=== PATIENT | male | born 1955 | race Caucasian/White ===

== ENCOUNTER 2016-08-22 16:09 | Emergency (ER) | payer BC, SELFPAY ==
--- NOTE | 2016-08-22 18:01 | EDDOCDS ---
Nurse's Notes [facility] Name: Rc Pacheco Age: 60 yrs Sex: Male : 1955 Arrival Date: 08/22/2016 Time: 16:09 Bed PD Private MD: NO PRIMARY PHYSICIAN, . Diagnosis: Retention of urine Presentation: 08/22 16:20 Presenting complaint: Patient states: Urinary retention. Has not urinated since noon. ld5 Has urgency but unable to go. Adult Sepsis Screening: The patient does not have new or worsening altered mentation. Patient's respiratory rate is less than 22. Systolic blood pressure is greater than 100. Patient has a qSOFA score of 0- Negative Sepsis Screen. Suicide/Homicide risk assessment- the patient denies having any suicidal and/or homicidal ideations and does not present with any other emotional, behavioral or mental health complaints. Status: Patient is not a online services manager or dependent. Transition of care: patient was not received from another setting of care. 16:20 Acuity: PELON Level 3 ld5 16:20 Method Of Arrival: Walkin/Carried/Asstd ld5 Triage Assessment: 16:22 General: Appears uncomfortable. Pain: Location: suprapubic area Pain currently is 10 ld5 out of 10 on a pain scale. HIV screening NA for this visit Offered previously. Neurological: Level of Consciousness is awake, alert. : Reports inability to void urgency. Historical: - Allergies: no known allergies; - Home Meds: 1. none - PMHx: Chronic Back pain; Urinary retention; - PSHx: Hernia repair; - Social history: Smoking status: Patient states was never smoker of tobacco. No barriers to communication noted, The patient speaks fluent Romanian, Speaks appropriately for age. - Family history: Not pertinent. - : The pt / caregiver states he / she is not on anticoagulants. Home medication list is obtained from the patient. - Exposure Risk Screening:: None identified. Screenin:50 Screening information is obtained from the patient. Fall risk: No risks identified. ttb Assistance ADL's: requires no assistance with activities of daily living. Abuse/DV Screen: The patient / caregiver reports he/she is: not in a situation that causes fear, pain or injury. Nutritional screening: No deficits noted. Advance Directives: Currently, there is no health care proxy. home support is adequate. Assessment: 16:50 General: Appears uncomfortable, well nourished, well groomed. ttb 16:50 Pain: Location: lower abd. Neurological: Level of Consciousness is awake, alert. ttb Respiratory: No deficits noted. Airway is patent. Derm: Skin is normal. 17:57 Reassessment: Patient appears in no apparent distress at this time. Patient denies pain ttb at this time. Patient states feeling better. Patient states symptoms have improved. leg bag placed. Urine output remains adequate. 1300ml total. Respiratory: No deficits noted. Airway is patent. : Song in place to gravity drainage Urine is cloudy. Vital Signs: 16:11 BP 155 / 87; Pulse 103; Resp 18 S; Temp 98.2(O); Pulse Ox 97% on R/A; Weight 77.11 kg gr2 (R); Height 5 ft. 8 in. (172.72 cm) (R); Pain 7/10; 17:57 BP 129 / 76; Pulse 86; Resp 18; Temp 98.6; Pulse Ox 98% on R/A; Pain 0/10; ttb 16:11 Body Mass Index 25.85 (77.11 kg, 172.72 cm) gr2 Vitals: 16:11 Log In Time: August 22, 2016 at 16:11. gr2 ED Course: 16:10 Patient visited by David Hurd. gr2 16:10 NO PRIMARY PHYSICIAN, . is Private Physician. gr2 16:10 Patient moved to Waiting gr2 16:12 Patient visited by David Hurd. gr2 16:12 Patient moved to Pre RCE gr2 16:22 Triage Initiated ld5 16:23 Patient visited by Flora Carney RN. ld5 16:26 Patient moved to Triage 2 ld5 16:33 Bladder Scan completed Results: >999ml : unable to print . ttb 16:37 Giuliano New PA is PHCP. btw 16:37 Ashlie Ascencio MD is Attending Physician. btw 16:37 Patient visited by Giuliano New PA. btw 16:50 The patient / caregiver is instructed regarding the plan of care and ED course. ttb Accompanied by Family Member, Patient has correct armband on for positive identification. 17:10 Patient visited by Nao Oakley RN. ttb 17:10 Song cath inserted 18 Fr. Balloon inflated. To gravity drainage. Urine specimen ttb collected. other clamped after 800ml returned clear yellow urine. Patient tolerated well. 17:12 Patient visited by Noa Oakley RN. ttb 17:13 Patient moved to PD ttb 17:39 Nel Zepeda MD is Referral Physician. btw 17:57 No IV's were initiated during this patient's visit. No procedures done that require ttb assistance. Order Results: Lab Order: Urinalysis; SPEC'M 08/22/16 16:57 Test: APPEARANCE, URINE; Value: CLEAR; Range: CLEAR; Status: F Test: COLOR, URINE; Value: YELLOW; Range: YELLOW; Status: F Test: PH,URINE; Value: 6.0; Range: 5.0-9.0; Units: UNITS; Status: F Test: SPECIFIC GRAVITY URINE AUTO; Value: 1.010; Range: 1.002-1.035; Status: F Test: PROTEIN, URINE AUTO; Value: NEGATIVE; Range: NEGATIVE; Units: mg/dL; Status: F Test: GLUCOSE, URINE (UA) AUTO; Value: NEGATIVE; Range: NEGATIVE; Units: mg/dL; Status: F Test: KETONE, URINE AUTO; Value: NEGATIVE; Range: NEGATIVE; Units: mg/dL; Status: F Test: UROBILINOGEN, URINE AUTO; Value: 0.2; Range: 0.0-2.0; Units: mg/dL; Status: F Test: BILIRUBIN, URINE AUTO; Value: NEGATIVE; Range: NEGATIVE; Status: F Test: NITRITE, URINE AUTO; Value: NEGATIVE; Range: NEGATIVE; Status: F Test: LEUKOCYTE ESTERASE, URINE AUTO; Value: NEGATIVE; Range: NEGATIVE; Status: F Test: BLOOD, URINE BLOOD; Value: NEGATIVE; Range: NEGATIVE; Status: F Test: WBC, URINE AUTO; Value: 1; Range: 0-3; Units: /HPF; Status: F Test: RBC, URINE AUTO; Value: 3; Range: 0-3; Units: /HPF; Status: F Test: BACTERIA, URINE AUTO; Value: 1+; Range: NEGATIVE; Abnormal: Above high normal; Status: F Test: SQUAMOUS EPITHELIAL CELL UR AU; Value: 0; Range: 0-6; Units: /HPF; Status: F Test: MUCUS, URINE; Value: SMALL; Range: NEGATIVE; Status: F Test: HYALINE CAST, URINE AUTO; Value: 0; Range: 0-1; Units: /LPF; Status: F Outcome: 17:39 Discharge ordered by Provider. btw 17:57 Discharge Assessment: Patient awake, alert and oriented x 3. No cognitive and/or ttb functional deficits noted. Patient verbalized understanding of disposition instructions. Patient awake and alert. patient administered narcotics - no. The following High Risk Discharge criteria are identified: None. Discharged to home ambulatory, with family. Condition: good Condition: stable Condition: improved. Discharge instructions given to patient, Instructed on discharge instructions, follow up and referral plans. medication usage, leg bag teaching Demonstrated understanding of instructions, medications, Pt was receptive of discharge instructions/ teaching. No special radiology studies were completed. Property :Personal belongings accompany Pt. 18:00 Patient left the ED. ttb Signatures: Giuliano New PA PA btw Flora CarneyRN RN ld5 Noa Oakley RN RN ttb David Hurd gr2 [place]
--- NOTE | 2016-08-22 18:01 | EDDOCDS ---
Physician Documentation [facility] Name: Rc Pacheco Age: 60 yrs Sex: Male : 1955 Arrival Date: 08/22/2016 Time: 16:09 Bed PD Private MD: NO PRIMARY PHYSICIAN, . Disposition: 08/22/16 17:39 Discharged to Home/Self Care. Impression: Retention of urine. - Condition is Stable. - Discharge Instructions: Urinary Retention, Acute, Male, Xbuz-fk-Aqhf, Song Catheter Care, Adult, Mubr-[id number]. - Medication Reconciliation, Local Pharmacy Hours form. - Follow up: Nel Zepeda MD; When: 2 - 3 days; Reason: Further diagnostic work-up, Recheck today's complaints, Continuance of care. - Problem is new. - Symptoms are unchanged. Historical: - Allergies: no known allergies; - Home Meds: 1. none - PMHx: Chronic Back pain; Urinary retention; - PSHx: Hernia repair; - Social history: Smoking status: Patient states was never smoker of tobacco. No barriers to communication noted, The patient speaks fluent Cook Islander, Speaks appropriately for age. - Family history: Not pertinent. - : The pt / caregiver states he / she is not on anticoagulants. Home medication list is obtained from the patient. - Exposure Risk Screening:: None identified. Vital Signs: 08/22 16:11 BP 155 / 87; Pulse 103; Resp 18 S; Temp 98.2(O); Pulse Ox 97% on R/A; Weight 77.11 kg / gr2 170 lbs (R); Height 5 ft. 8 in. (172.72 cm) (R); Pain 7/10; 17:57 BP 129 / 76; Pulse 86; Resp 18; Temp 98.6; Pulse Ox 98% on R/A; Pain 0/10; ttb 16:11 Body Mass Index 25.85 (77.11 kg, 172.72 cm) gr2 MDM: 16:42 Song ordered. btw 16:43 Urinalysis Ordered. EDMS 16:43 Urine Culture Ordered. EDMS 17:30 Urinalysis Reviewed. btw 17:38 Leg Bag ordered. btw Signatures: Dispatcher [employer] EDMS Giuliano New PA PA btw Flora Carney,RN RN ld5 Noa Oakley, RN RN ttb MTDD
--- NOTE | 2016-08-24 19:01 | EDDOCDS ---
Physician Documentation [facility] Name: Rc Pacheco Age: 60 yrs Sex: Male : 1955 Arrival Date: 08/22/2016 Time: 16:09 Bed PD Private MD: NO PRIMARY PHYSICIAN, . Disposition: 08/22/16 17:39 Discharged to Home/Self Care. Impression: Retention of urine. - Condition is Stable. - Discharge Instructions: Urinary Retention, Acute, Male, Scec-di-Hour, Song Catheter Care, Adult, Frwt-uu-Pufu. - Medication Reconciliation, Local Pharmacy Hours form. - Follow up: Nel Zepeda MD; When: 2 - 3 days; Reason: Further diagnostic work-up, Recheck today's complaints, Continuance of care. - Problem is new. - Symptoms are unchanged. Historical: - Allergies: no known allergies; - Home Meds: 1. none - PMHx: Chronic Back pain; Urinary retention; - PSHx: Hernia repair; - Social history: Smoking status: Patient states was never smoker of tobacco. No barriers to communication noted, The patient speaks fluent Sri Lankan, Speaks appropriately for age. - Family history: Not pertinent. - : The pt / caregiver states he / she is not on anticoagulants. Home medication list is obtained from the patient. - Exposure Risk Screening:: None identified. Vital Signs: 08/22 16:11 BP 155 / 87; Pulse 103; Resp 18 S; Temp 98.2(O); Pulse Ox 97% on R/A; Weight 77.11 kg / gr2 170 lbs (R); Height 5 ft. 8 in. (172.72 cm) (R); Pain 7/10; 17:57 BP 129 / 76; Pulse 86; Resp 18; Temp 98.6; Pulse Ox 98% on R/A; Pain 0/10; ttb 16:11 Body Mass Index 25.85 (77.11 kg, 172.72 cm) gr2 MDM: 16:42 Song ordered. btw 16:43 Urinalysis Ordered. EDMS 16:43 Urine Culture Ordered. EDMS 17:30 Urinalysis Reviewed. btw 17:38 Leg Bag ordered. btw 18:03 [facility] Payment Agreement was scanned into [employer] and attached to record. gjb 18:03 Financial registration complete. gjb 08/23 09:18 T-Sheet-- Draft Copy was scanned into [employer] and attached to record. gb Signatures: Dispatcher [employer] EDMS Renuka Palacio, Reg Reg gb Giuliano New, JOAN FRANCO btw Flora CarneyRN RN ld5 Noa Oakley RN RN Bree Nguyen The chart was reviewed and I authenticate all verbal orders and agree with the evaluation and treatment provided.Attachments: 08/22 18:03 [facility] Payment Agreement gjb 08/23 09:18 T-Sheet-- Draft Copy gb Chart Complete MTDD
--- NOTE | 2016-08-24 19:01 | EDDOCDS ---
Physician Documentation [facility] Name: Rc Pacheco Age: 60 yrs Sex: Male : 1955 Arrival Date: 08/22/2016 Time: 16:09 Bed PD Private MD: NO PRIMARY PHYSICIAN, . Disposition: 08/22/16 17:39 Discharged to Home/Self Care. Impression: Retention of urine. - Condition is Stable. - Discharge Instructions: Urinary Retention, Acute, Male, Sdho-zs-Ltzy, Song Catheter Care, Adult, Uyxo-ym-Apgy. - Medication Reconciliation, Local Pharmacy Hours form. - Follow up: Nel Zepeda MD; When: 2 - 3 days; Reason: Further diagnostic work-up, Recheck today's complaints, Continuance of care. - Problem is new. - Symptoms are unchanged. Historical: - Allergies: no known allergies; - Home Meds: 1. none - PMHx: Chronic Back pain; Urinary retention; - PSHx: Hernia repair; - Social history: Smoking status: Patient states was never smoker of tobacco. No barriers to communication noted, The patient speaks fluent Stateless, Speaks appropriately for age. - Family history: Not pertinent. - : The pt / caregiver states he / she is not on anticoagulants. Home medication list is obtained from the patient. - Exposure Risk Screening:: None identified. Vital Signs: 08/22 16:11 BP 155 / 87; Pulse 103; Resp 18 S; Temp 98.2(O); Pulse Ox 97% on R/A; Weight 77.11 kg / gr2 170 lbs (R); Height 5 ft. 8 in. (172.72 cm) (R); Pain 7/10; 17:57 BP 129 / 76; Pulse 86; Resp 18; Temp 98.6; Pulse Ox 98% on R/A; Pain 0/10; ttb 16:11 Body Mass Index 25.85 (77.11 kg, 172.72 cm) gr2 MDM: 16:42 Song ordered. btw 16:43 Urinalysis Ordered. EDMS 16:43 Urine Culture Ordered. EDMS 17:30 Urinalysis Reviewed. btw 17:38 Leg Bag ordered. btw 18:03 [facility] Payment Agreement was scanned into [employer] and attached to record. gjb 18:03 Financial registration complete. gjb 08/23 09:18 T-Sheet-- Draft Copy was scanned into [employer] and attached to record. gb Signatures: Dispatcher [employer] EDMS Renuka Palacio, Reg Reg gb Giuliano New, JOAN FRANCO btw Flora CarneyRN RN ld5 Noa Oakley RN RN Bree Nguyen The chart was reviewed and I authenticate all verbal orders and agree with the evaluation and treatment provided.Attachments: 08/22 18:03 [facility] Payment Agreement gjb 08/23 09:18 T-Sheet-- Draft Copy gb Chart Complete MTDD
--- NOTE | 2016-08-24 19:01 | EDDOCDS ---
Nurse's Notes [facility] Name: Rc Pacheco Age: 60 yrs Sex: Male : 1955 Arrival Date: 08/22/2016 Time: 16:09 Bed PD Private MD: NO PRIMARY PHYSICIAN, . Diagnosis: Retention of urine Presentation: 08/22 16:20 Presenting complaint: Patient states: Urinary retention. Has not urinated since noon. ld5 Has urgency but unable to go. Adult Sepsis Screening: The patient does not have new or worsening altered mentation. Patient's respiratory rate is less than 22. Systolic blood pressure is greater than 100. Patient has a qSOFA score of 0- Negative Sepsis Screen. Suicide/Homicide risk assessment- the patient denies having any suicidal and/or homicidal ideations and does not present with any other emotional, behavioral or mental health complaints. Status: Patient is not a guest service team leader or dependent. Transition of care: patient was not received from another setting of care. 16:20 Acuity: PELON Level 3 ld5 16:20 Method Of Arrival: Walkin/Carried/Asstd ld5 Triage Assessment: 16:22 General: Appears uncomfortable. Pain: Location: suprapubic area Pain currently is 10 ld5 out of 10 on a pain scale. HIV screening NA for this visit Offered previously. Neurological: Level of Consciousness is awake, alert. : Reports inability to void urgency. Historical: - Allergies: no known allergies; - Home Meds: 1. none - PMHx: Chronic Back pain; Urinary retention; - PSHx: Hernia repair; - Social history: Smoking status: Patient states was never smoker of tobacco. No barriers to communication noted, The patient speaks fluent Setswana, Speaks appropriately for age. - Family history: Not pertinent. - : The pt / caregiver states he / she is not on anticoagulants. Home medication list is obtained from the patient. - Exposure Risk Screening:: None identified. Screenin:50 Screening information is obtained from the patient. Fall risk: No risks identified. ttb Assistance ADL's: requires no assistance with activities of daily living. Abuse/DV Screen: The patient / caregiver reports he/she is: not in a situation that causes fear, pain or injury. Nutritional screening: No deficits noted. Advance Directives: Currently, there is no health care proxy. home support is adequate. Assessment: 16:50 General: Appears uncomfortable, well nourished, well groomed. ttb 16:50 Pain: Location: lower abd. Neurological: Level of Consciousness is awake, alert. ttb Respiratory: No deficits noted. Airway is patent. Derm: Skin is normal. 17:57 Reassessment: Patient appears in no apparent distress at this time. Patient denies pain ttb at this time. Patient states feeling better. Patient states symptoms have improved. leg bag placed. Urine output remains adequate. 1300ml total. Respiratory: No deficits noted. Airway is patent. : Song in place to gravity drainage Urine is cloudy. Vital Signs: 16:11 BP 155 / 87; Pulse 103; Resp 18 S; Temp 98.2(O); Pulse Ox 97% on R/A; Weight 77.11 kg gr2 (R); Height 5 ft. 8 in. (172.72 cm) (R); Pain 7/10; 17:57 BP 129 / 76; Pulse 86; Resp 18; Temp 98.6; Pulse Ox 98% on R/A; Pain 0/10; ttb 16:11 Body Mass Index 25.85 (77.11 kg, 172.72 cm) gr2 Vitals: 16:11 Log In Time: August 22, 2016 at 16:11. gr2 ED Course: 16:10 Patient visited by David Hurd. gr2 16:10 NO PRIMARY PHYSICIAN, . is Private Physician. gr2 16:10 Patient moved to Waiting gr2 16:12 Patient visited by David Hurd. gr2 16:12 Patient moved to Pre RCE gr2 16:22 Triage Initiated ld5 16:23 Patient visited by Flora Carney RN. ld5 16:26 Patient moved to Triage 2 ld5 16:33 Bladder Scan completed Results: >999ml : unable to print . ttb 16:37 Giuliano New PA is PHCP. btw 16:37 Ashlie Ascencio MD is Attending Physician. btw 16:37 Patient visited by Giuliano New PA. btw 16:50 The patient / caregiver is instructed regarding the plan of care and ED course. ttb Accompanied by Family Member, Patient has correct armband on for positive identification. 17:10 Patient visited by Noa Oakley RN. ttb 17:10 Song cath inserted 18 Fr. Balloon inflated. To gravity drainage. Urine specimen ttb collected. other clamped after 800ml returned clear yellow urine. Patient tolerated well. 17:12 Patient visited by Noa Oakley RN. ttb 17:13 Patient moved to PD ttb 17:39 Nel Zepeda MD is Referral Physician. btw 17:57 No IV's were initiated during this patient's visit. No procedures done that require ttb assistance. 18:03 [facility] Payment Agreement was scanned into [employer] and attached to record. gjb 08/23 09:18 T-Sheet-- Draft Copy was scanned into [employer] and attached to record. gb Order Results: Lab Order: Urinalysis; SPEC'M 08/22/16 16:57 Test: APPEARANCE, URINE; Value: CLEAR; Range: CLEAR; Status: F Test: COLOR, URINE; Value: YELLOW; Range: YELLOW; Status: F Test: PH,URINE; Value: 6.0; Range: 5.0-9.0; Units: UNITS; Status: F Test: SPECIFIC GRAVITY URINE AUTO; Value: 1.010; Range: 1.002-1.035; Status: F Test: PROTEIN, URINE AUTO; Value: NEGATIVE; Range: NEGATIVE; Units: mg/dL; Status: F Test: GLUCOSE, URINE (UA) AUTO; Value: NEGATIVE; Range: NEGATIVE; Units: mg/dL; Status: F Test: KETONE, URINE AUTO; Value: NEGATIVE; Range: NEGATIVE; Units: mg/dL; Status: F Test: UROBILINOGEN, URINE AUTO; Value: 0.2; Range: 0.0-2.0; Units: mg/dL; Status: F Test: BILIRUBIN, URINE AUTO; Value: NEGATIVE; Range: NEGATIVE; Status: F Test: NITRITE, URINE AUTO; Value: NEGATIVE; Range: NEGATIVE; Status: F Test: LEUKOCYTE ESTERASE, URINE AUTO; Value: NEGATIVE; Range: NEGATIVE; Status: F Test: BLOOD, URINE BLOOD; Value: NEGATIVE; Range: NEGATIVE; Status: F Test: WBC, URINE AUTO; Value: 1; Range: 0-3; Units: /HPF; Status: F Test: RBC, URINE AUTO; Value: 3; Range: 0-3; Units: /HPF; Status: F Test: BACTERIA, URINE AUTO; Value: 1+; Range: NEGATIVE; Abnormal: Above high normal; Status: F Test: SQUAMOUS EPITHELIAL CELL UR AU; Value: 0; Range: 0-6; Units: /HPF; Status: F Test: MUCUS, URINE; Value: SMALL; Range: NEGATIVE; Status: F Test: HYALINE CAST, URINE AUTO; Value: 0; Range: 0-1; Units: /LPF; Status: F Lab Order: Urine Culture; SPEC'M 08/22/16 16:57 Test: URINE CULTURE; Value: <EXTERNAL COMMENT eCWMed> FULL REPORT IN LAB NOTES (eCW and Medent).; Status: F Test: URINE CULTURE; Value: URINE CULTURE RESULT NO GROWTH; Status: F Outcome: 08/22 17:39 Discharge ordered by Provider. btw 17:57 Discharge Assessment: Patient awake, alert and oriented x 3. No cognitive and/or ttb functional deficits noted. Patient verbalized understanding of disposition instructions. Patient awake and alert. patient administered narcotics - no. The following High Risk Discharge criteria are identified: None. Discharged to home ambulatory, with family. Condition: good Condition: stable Condition: improved. Discharge instructions given to patient, Instructed on discharge instructions, follow up and referral plans. medication usage, leg bag teaching Demonstrated understanding of instructions, medications, Pt was receptive of discharge instructions/ teaching. No special radiology studies were completed. Property :Personal belongings accompany Pt. 18:00 Patient left the ED. ttb Signatures: Renuka Palacio, Robles Reg Giuliano Cheney PA PA btw Flora Carney RN RN ld5 Noa Oakley RN RN ttb David Hurd gr2 Bree Lewis Chart Complete MTDD
== END 2016-08-22 18:00 | disposition home or self-care (01) ==
LOC: M ED 16:09
DX: R33.9 Retention of urine, unspecified (principal); M54.9 Dorsalgia, unspecified; G89.29 Other chronic pain

== ENCOUNTER 2016-08-25 12:50 | Emergency (ER) | payer BC ==
[2016-08-25 14:10] LABS: BASO # 0.1 K/mm3 (0.0-0.2); EOS # 0.2 K/mm3 (0.0-0.50); EOS % 3.4 % (0.0-3.0); LARGE UNSTAINED CELL # 0.1 K/mm3 (0.0-0.4); LARGE UNSTAINED CELL % 1.9 % (0.0-4.0); LYMPH % 25.5 % (24.0-44.0); MEAN CORPUSCULAR HEMOGLOBIN 32.4 pg (27.0-33.0); MEAN CORPUSCULAR HGB CONC 34.9 g/dl (32.0-36.5); MEAN CORPUSCULAR VOLUME 92.8 fl (80.0-96.0); MONO # 0.4 K/mm3 (0.0-0.8); NEUTROPHILS # 4.6 K/mm3 (1.8-7.7); NEUTROPHILS % 63.2 % (36.0-66.0); PLATELET COUNT, AUTOMATED 178 k/mm3 (150-450); RED CELL DISTRIBUTION WIDTH 12.4 % (11.5-14.5); WHITE BLOOD COUNT 7.3 K/mm3 (4.0-10.0)
[2016-08-25] MEDS ORDERED: KETOROLAC 30 MG/ML VIAL (J1885) As Ordered ONE (14:27)
[2016-08-25] MEDS ORDERED: ONDANSETRON 4MG/2ML VIAL (J2405) As Ordered ONE (14:27)
[2016-08-25 14:33] LABS: ALBUMIN 3.9 GM/DL (3.2-5.2); ALBUMIN/GLOBULIN RATIO 1.03 (1.00-1.93); ALKALINE PHOSPHATASE 103 U/L (45-117); ALT/SGPT 53 U/L (12-78); ANION GAP 8 MEQ/L (8-16); AST/SGOT 26 U/L (15-37); BILIRUBIN,DIRECT < 0.1 MG/DL (0.0-0.2); BILIRUBIN,TOTAL 0.3 MG/DL (0.2-1.0); BLOOD UREA NITROGEN 12 MG/DL (7-18); CALCIUM LEVEL 9.1 MG/DL (8.8-10.2); CARBON DIOXIDE LEVEL 30 MEQ/L (21-32); CHLORIDE LEVEL 103 MEQ/L (98-107); CREATININE FOR GFR 0.96 MG/DL (0.70-1.30); GLOMERULAR FILTRATION RATE > 60.0 (>49); GLUCOSE, FASTING 112 MG/DL (80-110); POTASSIUM SERUM 3.9 MEQ/L (3.5-5.1); SODIUM LEVEL 141 MEQ/L (136-145); TOTAL PROTEIN 7.7 GM/DL (6.4-8.2)
[2016-08-25] MEDS ORDERED: CIPROFLOXACIN 500 MG TAB As Ordered ONE (16:02)
--- NOTE | 2016-08-25 16:40 | EDDOCDS ---
Nurse's Notes [facility] Name: Rc Pacheco Age: 60 yrs Sex: Male : 1955 Arrival Date: 08/25/2016 Time: 12:50 Bed I2 / M2 Private MD: No Pcp Diagnosis: Displacement of urinary (indwelling) catheter;Hematuria;Urinary tract infection, site not specified Presentation: 08/25 12:56 Presenting complaint: Patient states: catheter is leaking - started last night. states pml able to drain urine. feels urge to strain against catheter. report hematuria continues. has not made appt with urologist yet. Adult Sepsis Screening: The patient does not have new or worsening altered mentation. Patient's respiratory rate is less than 22. Systolic blood pressure is greater than 100. Patient has a qSOFA score of 0- Negative Sepsis Screen. Suicide/Homicide risk assessment- the patient denies having any suicidal and/or homicidal ideations and does not present with any other emotional, behavioral or mental health complaints. Status: Patient is not a service establishment attendant or dependent. Transition of care: patient was not received from another setting of care. 12:56 Acuity: PELON Level 3 pml 12:56 Method Of Arrival: Walkin/Carried/Asstd pml Triage Assessment: 12:58 General: Appears in no apparent distress, comfortable. Pain: Location: suprapubic area pml Pain currently is 6 out of 10 on a pain scale. HIV screening NA for this visit Offered previously. Historical: - Allergies: no known allergies; - Home Meds: 1. none - PMHx: Chronic Back pain; urinary retention; - PSHx: Hernia repair; - Social history: Smoking status: Patient states former smoker of tobacco. No barriers to communication noted, The patient speaks fluent Bengali, Speaks appropriately for age. - Family history: Not pertinent. - : The pt / caregiver states he / she is not on anticoagulants. Home medication list is obtained from the patient. - Exposure Risk Screening:: None identified. Screenin:55 Screening information is obtained from the patient. Fall risk: No risks identified. mk4 Assistance ADL's: requires no assistance with activities of daily living. Abuse/DV Screen: The patient / caregiver reports he/she is: not in a situation that causes fear, pain or injury. Nutritional screening: No deficits noted. Advance Directives: Currently, there is no health care proxy. There is no active DNR order. There is no living will. 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 Advance directive information has not previously been placed in an [facility] medical record. Further advance directive information. home support is adequate. Assessment: 13:50 : Raygoza in place draining clear madi urine , pt states he occasionally gets some mk4 leaking around the raygoza after a "spasm" bladder scan done for 0ml in bladder. 13:55 General: Appears in no apparent distress, comfortable, Behavior is cooperative. mk4 14:14 General: Appears uncomfortable, Raygoza catheter removed and 16 Fr raygoza re inserted with mk4 large amount of blood returning with urine, pt states much cramping and burning with raygoza insertion states right flank " cramping" after procedure. 14:55 General: Appears uncomfortable, Behavior is cooperative, moderate amount of bleeding mk4 from penis at meatus, pt states pain and cramping, no urine leaking around catheter. 16:37 General: Appears in no apparent distress, comfortable. Respiratory: No deficits noted. kc3 : raygoza switched to leg bag. Derm: Skin is pink, warm & dry. Vital Signs: 12:53 BP 153 / 86 RA Sitting (auto/reg); Pulse 81; Resp 18; Temp 98.6(O); Pulse Ox 97% on jrd R/A; Weight 77.11 kg (R); Height 5 ft. 8 in. (172.72 cm) (R); Pain 6/10; 15:56 BP 141 / 77; Pulse 72; Resp 16; Temp 99.0(O); Pulse Ox 98% on R/A; lr2 12:53 Body Mass Index 25.85 (77.11 kg, 172.72 cm) [facility] Vitals: 12:53 Log In Time: August 25, 2016 at 12:35. d ED Course: 12:52 Patient visited by Armando Tavarez PCA. jrd 12:52 Patient moved to Waiting jrd 12:53 No Pcp is Private Physician. jrd 12:54 Patient visited by Armando Tavarez PCA. jrd 12:54 Patient moved to Pre RCE jrd 12:57 Triage Initiated pml 12:58 Patient visited by Radha Jama RN. pml 13:14 Patient moved to I2 / M2 ml6 13:34 Patient visited by Kiarra Kaplan RN. mk4 13:40 Radha Vargas PA-C [facility]. ef1 13:41 Ce Domínguez MD is Attending Physician. ef1 13:41 Patient visited by Radha Vargas PA-C. ef1 14:00 Inserted saline lock: 20 gauge in right antecubital area and blood collected. Raygoza mk4 cath inserted 16 Fr. Balloon inflated. To gravity drainage. Urine specimen collected. returned bloody urine. Patient tolerated poorly. 14:09 [facility] Payment Agreement was scanned into [employer] and attached to record. lg 14:10 Patient visited by Spencer Reinoso PCA. jlf 14:12 Urine Culture Sent. mk4 14:12 UA Sent. mk4 14:43 Patient visited by Radha Vargas PA-C. ef1 14:55 The patient / caregiver is instructed regarding the plan of care and ED course. mk4 15:15 Patient visited by Kiarra Kaplan RN. mk4 15:43 Patient visited by Radha Vargas PA-C. ef1 16:00 Nel Zepeda MD is Referral Physician. ef1 16:39 Discontinued IV lock intact, bleeding controlled, pressure dressing applied, No kc3 redness/swelling at site. No procedures done that require assistance. Administered Medications: 14:53 Drug: NS 0.9% 1000 ml [sodium chloride 0.9 % intravenous solution] Route: IV; Rate: kc3 bolus; Site: right antecubital; 14:54 Drug: ketorolac 30 mg [ketorolac 30 mg/mL (1 mL) injection solution (1 mL)] Route: IVP; kc3 Site: right antecubital; 14:54 Drug: Ondansetron 4 mg [ondansetron HCl 2 mg/mL intravenous solution (2 mL)] Route: kc3 IVP; Site: right antecubital; 16:05 Drug: Ciprofloxacin 500 mg [ciprofloxacin 500 mg tablet (1 tabs)] Route: PO; mk4 Order Results: Lab Order: UA; SPEC'M 08/25/16 13:48 Test: APPEARANCE, URINE; Value: CLOUDY; Range: CLEAR; Abnormal: Above high normal; Status: F Test: COLOR, URINE; Value: RED; Range: YELLOW; Abnormal: Above high normal; Status: F Test: PH,URINE; Value: 6.0; Range: 5.0-9.0; Units: UNITS; Status: F Test: SPECIFIC GRAVITY URINE AUTO; Value: 1.019; Range: 1.002-1.035; Status: F Test: PROTEIN, URINE AUTO; Value: 2+; Range: NEGATIVE; Abnormal: Above high normal; Units: mg/dL; Status: F Test: GLUCOSE, URINE (UA) AUTO; Value: NEGATIVE; Range: NEGATIVE; Units: mg/dL; Status: F Test: KETONE, URINE AUTO; Value: NEGATIVE; Range: NEGATIVE; Units: mg/dL; Status: F Test: UROBILINOGEN, URINE AUTO; Value: 0.2; Range: 0.0-2.0; Units: mg/dL; Status: F Test: BILIRUBIN, URINE AUTO; Value: NEGATIVE; Range: NEGATIVE; Status: F Test: NITRITE, URINE AUTO; Value: NEGATIVE; Range: NEGATIVE; Status: F Test: LEUKOCYTE ESTERASE, URINE AUTO; Value: 2+; Range: NEGATIVE; Abnormal: Above high normal; Status: F Test: BLOOD, URINE BLOOD; Value: 3+; Range: NEGATIVE; Abnormal: Above high normal; Status: F Test: WBC, URINE AUTO; Value: TNTC; Range: 0-3; Abnormal: Above high normal; Units: /HPF; Status: F Test: RBC, URINE AUTO; Value: TNTC; Range: 0-3; Abnormal: Above high normal; Units: /HPF; Status: F Test: BACTERIA, URINE AUTO; Value: NEGATIVE; Range: NEGATIVE; Status: F Test: SQUAMOUS EPITHELIAL CELL UR AU; Value: 2; Range: 0-6; Units: /HPF; Status: F Test: HYALINE CAST, URINE AUTO; Value: 0; Range: 0-1; Units: /LPF; Status: F Lab Order: Basic Metabolic Profile; SPEC'M 08/25/16 13:48 Test: GLUCOSE, FASTING; Value: 112; Range: 80-110; Abnormal: Above high normal; Units: MG/DL; Status: F Test: BLOOD UREA NITROGEN; Value: 12; Range: 7-18; Units: MG/DL; Status: F Test: CREATININE FOR GFR; Value: 0.96; Range: 0.70-1.30; Units: MG/DL; Status: F Test: GLOMERULAR FILTRATION RATE; Value: > 60.0; Range: >49; Status: F Test: SODIUM LEVEL; Value: 141; Range: 136-145; Units: MEQ/L; Status: F Test: POTASSIUM SERUM; Value: 3.9; Range: 3.5-5.1; Units: MEQ/L; Status: F Test: CHLORIDE LEVEL; Value: 103; Range: 98-107; Units: MEQ/L; Status: F Test: CARBON DIOXIDE LEVEL; Value: 30; Range: 21-32; Units: MEQ/L; Status: F Test: ANION GAP; Value: 8; Range: 8-16; Units: MEQ/L; Status: F Test: CALCIUM LEVEL; Value: 9.1; Range: 8.8-10.2; Units: MG/DL; Status: F Test Note: ; Units are mL/min/1.73 m2 Chronic Kidney Disease Staging per NKF: Stage I & II GFR >=60 Normal to Mildly Decreased Stage III GFR 30-59 Moderately Decreased Stage IV GFR 15-29 Severely Decreased Stage V GFR <15 Very Little GFR Left ESRD GFR <15 on FAMILY SERVICE CASEWORKER Lab Order: CBC with Diff; SPEC'M 08/25/16 13:48 Test: WHITE BLOOD COUNT; Value: 7.3; Range: 4.0-10.0; Units: K/mm3; Status: F Test: RED BLOOD COUNT; Value: 4.88; Range: 4.30-6.10; Units: M/mm3; Status: F Test: HEMOGLOBIN; Value: 15.8; Range: 14.0-18.0; Units: g/dl; Status: F Test: HEMATOCRIT; Value: 45.3; Range: 42.0-52.0; Units: %; Status: F Test: MEAN CORPUSCULAR VOLUME; Value: 92.8; Range: 80.0-96.0; Units: fl; Status: F Test: MEAN CORPUSCULAR HEMOGLOBIN; Value: 32.4; Range: 27.0-33.0; Units: pg; Status: F Test: MEAN CORPUSCULAR HGB CONC; Value: 34.9; Range: 32.0-36.5; Units: g/dl; Status: F Test: RED CELL DISTRIBUTION WIDTH; Value: 12.4; Range: 11.5-14.5; Units: %; Status: F Test: PLATELET COUNT, AUTOMATED; Value: 178; Range: 150-450; Units: k/mm3; Status: F Test: NEUTROPHILS %; Value: 63.2; Range: 36.0-66.0; Units: %; Status: F Test: LYMPH %; Value: 25.5; Range: 24.0-44.0; Units: %; Status: F Test: MONO %; Value: 5.0; Range: 0.0-5.0; Units: %; Status: F Test: EOS %; Value: 3.4; Range: 0.0-3.0; Abnormal: Above high normal; Units: %; Status: F Test: BASO %; Value: 1.0; Range: 0.0-1.0; Units: %; Status: F Test: LARGE UNSTAINED CELL %; Value: 1.9; Range: 0.0-4.0; Units: %; Status: F Test: NEUTROPHILS #; Value: 4.6; Range: 1.8-7.7; Units: K/mm3; Status: F Test: LYMPH #; Value: 2.0; Range: 1.5-4.5; Units: K/mm3; Status: F Test: MONO #; Value: 0.4; Range: 0.0-0.8; Units: K/mm3; Status: F Test: EOS #; Value: 0.2; Range: 0.0-0.50; Units: K/mm3; Status: F Test: BASO #; Value: 0.1; Range: 0.0-0.2; Units: K/mm3; Status: F Test: LARGE UNSTAINED CELL #; Value: 0.1; Range: 0.0-0.4; Units: K/mm3; Status: F Lab Order: Liver Profile; SPEC'M 08/25/16 13:48 Test: AST/SGOT; Value: 26; Range: 15-37; Units: U/L; Status: F Test: ALT/SGPT; Value: 53; Range: 12-78; Units: U/L; Status: F Test: ALKALINE PHOSPHATASE; Value: 103; Range: 45-117; Units: U/L; Status: F Test: BILIRUBIN,TOTAL; Value: 0.3; Range: 0.2-1.0; Units: MG/DL; Status: F Test: BILIRUBIN,DIRECT; Value: < 0.1; Range: 0.0-0.2; Units: MG/DL; Status: F Test: TOTAL PROTEIN; Value: 7.7; Range: 6.4-8.2; Units: GM/DL; Status: F Test: ALBUMIN; Value: 3.9; Range: 3.2-5.2; Units: GM/DL; Status: F Test: ALBUMIN/GLOBULIN RATIO; Value: 1.03; Range: 1.00-1.93; Status: F Outcome: 16:00 Discharge ordered by Provider. ef1 16:38 Discharge Assessment: Patient awake, alert and oriented x 3. No cognitive and/or kc3 functional deficits noted. Patient verbalized understanding of disposition instructions. patient administered narcotics - no. The following High Risk Discharge criteria are identified: None. Discharged to home ambulatory. Condition: stable. Discharge instructions given to patient, Instructed on discharge instructions, follow up and referral plans. medication usage, Demonstrated understanding of instructions, medications, Pt was receptive of discharge instructions/ teaching. Prescriptions given X 1. CT Study completed. Property :Personal belongings accompany Pt. 16:40 Patient left the ED. kc3 Signatures: Anil Alonzo, Robles Reg Radha Vasquez, PA-C PA-C ef1 Yunier Zaman, RN RN [email or web address] Radha Jama,RN RN Kiarra Barron RN RN [email or web address] Spencer Reinoso, LIVE IN HOUSEKEEPER NANNY LIVE IN HOUSEKEEPER NANNY jlArmando Jeffers, LIVE IN HOUSEKEEPER NANNY LIVE IN HOUSEKEEPER NANNY jrCleo Dominguez,FIOR RN [email or web address] Flora Michaud2 Corrections: (The following items were deleted from the chart) 16:40 16:38 No special radiology studies were completed kc3 kc3 [facility]
--- NOTE | 2016-08-25 16:40 | EDDOCDS ---
Physician Documentation [facility] Name: Rc Pacheco Age: 60 yrs Sex: Male : 1955 Arrival Date: 08/25/2016 Time: 12:50 Bed I2 / M2 Private MD: No Pcp Disposition: 08/25/16 16:00 Discharged to Home/Self Care. Impression: Displacement of urinary (indwelling) catheter, Hematuria, Urinary tract infection, site not specified. - Condition is Stable. - Discharge Instructions: Hematuria, Adult, Urinary Tract Infection, [id number], Song Catheter Care, Adult, [id number]. - Prescriptions for Cipro 500 mg Oral Tablet - take 1 tablet by ORAL route every 12 hours; 14 tablet. - Medication Reconciliation, Local Pharmacy Hours form. - Follow up: Nel Zepeda; When: 1 - 2 days; Reason: Further diagnostic work-up, Recheck today's complaints, Continuance of care. Follow up: Emergency Department; Reason: Worsening of conditions. - Problem is new. - Symptoms have improved. Historical: - Allergies: no known allergies; - Home Meds: 1. none - PMHx: Chronic Back pain; urinary retention; - PSHx: Hernia repair; - Social history: Smoking status: Patient states former smoker of tobacco. No barriers to communication noted, The patient speaks fluent Icelandic, Speaks appropriately for age. - Family history: Not pertinent. - : The pt / caregiver states he / she is not on anticoagulants. Home medication list is obtained from the patient. - Exposure Risk Screening:: None identified. Vital Signs: 08/25 12:53 BP 153 / 86 RA Sitting (auto/reg); Pulse 81; Resp 18; Temp 98.6(O); Pulse Ox 97% on jrd R/A; Weight 77.11 kg / 170 lbs (R); Height 5 ft. 8 in. (172.72 cm) (R); Pain 6/10; 15:56 BP 141 / 77; Pulse 72; Resp 16; Temp 99.0(O); Pulse Ox 98% on R/A; lr2 12:53 Body Mass Index 25.85 (77.11 kg, 172.72 cm) jrd MDM: 13:41 Song ordered. ef1 13:42 Undress patient appropriately for examination ordered. ef1 13:42 Bladder Scan please ordered. ef1 13:42 IV Saline Lock ordered. ef1 13:42 UA Ordered. EDMS 13:42 Urine Culture Ordered. EDMS 13:43 Basic Metabolic Profile Ordered. EDMS 13:43 CBC with Diff Ordered. EDMS 13:43 Liver Profile Ordered. EDMS 13:44 NOTHING BY MOUTH+DIET ordered. EDMS 13:58 Financial registration complete. lg 14:09 [facility] Payment Agreement was scanned into [employer] and attached to record. lg 14:17 ketorolac 30 mg IVP once ordered. ef1 14:17 Ondansetron 4 mg IVP once ordered. ef1 14:18 NS 0.9% 1000 ml IV at bolus once ordered. ef1 14:18 CT ABD & PELVIS: No Contrast Ordered. EDMS 14:19 CBC with Diff Reviewed. ef1 14:53 UA Reviewed. ef1 14:53 Basic Metabolic Profile Reviewed. ef1 14:53 Liver Profile Reviewed. ef1 15:57 Ciprofloxacin 500 mg PO once ordered. ef1 Administered Medications: 14:53 Drug: NS 0.9% 1000 ml [sodium chloride 0.9 % intravenous solution] Route: IV; Rate: kc3 bolus; Site: right antecubital; 14:54 Drug: ketorolac 30 mg [ketorolac 30 mg/mL (1 mL) injection solution (1 mL)] Route: IVP; kc3 Site: right antecubital; 14:54 Drug: Ondansetron 4 mg [ondansetron HCl 2 mg/mL intravenous solution (2 mL)] Route: kc3 IVP; Site: right antecubital; 16:05 Drug: Ciprofloxacin 500 mg [ciprofloxacin 500 mg tablet (1 tabs)] Route: PO; mk4 Signatures: Dispatcher [employer] EDMS Anil Alonzo, Robles Reg lg Radha Vargas, PA-C PA-C ef1 Radha Jama,RN Kiarra Brown RN RN mk4 Cleo Remy RN RN kc3 The chart was reviewed and I authenticate all verbal orders and agree with the evaluation and treatment provided.Attachments: 14:09 [facility] Payment Agreement lg MTDD
--- NOTE | 2016-08-26 07:31 | REP ---
Clinical: Hematuria. Findings: Lung bases clear. Visualized heart and pericardium normal. Liver, spleen, pancreas, bilateral adrenal glands and kidneys are normal. Specifically, there is no perinephric stranding, hydroureteronephrosis, intrarenal or obstructing ureteral calculi. The patient is status post cholecystectomy and appendectomy. The enteric system is without obstruction or acute inflammatory process. Sigmoid diverticula noted without acute diverticulitis. Song catheter in collapsed bladder. Enlarged prostate gland. No pelvic fluid or ascites. No obvious adenopathy. No mass lesion. No free air. Atherosclerotic changes to the aorta without aneurysm. Degenerative changes the musculoskeletal structures without focal osseous abnormality. Sacroiliitis involving the right SI joint. Impression: No acute intra-abdominal or pelvic pathology appreciated. Normal urinary tract system. No ascites. Signed by Graham Darby MD 08/25/2016 02:58 P
--- NOTE | 2016-08-27 17:41 | EDDOCDS ---
Physician Documentation [facility] Name: Rc Pacheco Age: 60 yrs Sex: Male : 1955 Arrival Date: 08/25/2016 Time: 12:50 Bed I2 / M2 Private MD: No Pcp Disposition: 08/25/16 16:00 Discharged to Home/Self Care. Impression: Displacement of urinary (indwelling) catheter, Hematuria, Urinary tract infection, site not specified. - Condition is Stable. - Discharge Instructions: Hematuria, Adult, Urinary Tract Infection, [id number], Song Catheter Care, Adult, [id number]. - Prescriptions for Cipro 500 mg Oral Tablet - take 1 tablet by ORAL route every 12 hours; 14 tablet. - Medication Reconciliation, Local Pharmacy Hours form. - Follow up: Nel Zepeda; When: 1 - 2 days; Reason: Further diagnostic work-up, Recheck today's complaints, Continuance of care. Follow up: Emergency Department; Reason: Worsening of conditions. - Problem is new. - Symptoms have improved. Historical: - Allergies: no known allergies; - Home Meds: 1. none - PMHx: Chronic Back pain; urinary retention; - PSHx: Hernia repair; - Social history: Smoking status: Patient states former smoker of tobacco. No barriers to communication noted, The patient speaks fluent Hungarian, Speaks appropriately for age. - Family history: Not pertinent. - : The pt / caregiver states he / she is not on anticoagulants. Home medication list is obtained from the patient. - Exposure Risk Screening:: None identified. Vital Signs: 08/25 12:53 BP 153 / 86 RA Sitting (auto/reg); Pulse 81; Resp 18; Temp 98.6(O); Pulse Ox 97% on jrd R/A; Weight 77.11 kg / 170 lbs (R); Height 5 ft. 8 in. (172.72 cm) (R); Pain 6/10; 15:56 BP 141 / 77; Pulse 72; Resp 16; Temp 99.0(O); Pulse Ox 98% on R/A; lr2 12:53 Body Mass Index 25.85 (77.11 kg, 172.72 cm) jrd MDM: 13:41 Song ordered. ef1 13:42 Undress patient appropriately for examination ordered. ef1 13:42 Bladder Scan please ordered. ef1 13:42 IV Saline Lock ordered. ef1 13:42 UA Ordered. EDMS 13:42 Urine Culture Ordered. EDMS 13:43 Basic Metabolic Profile Ordered. EDMS 13:43 CBC with Diff Ordered. EDMS 13:43 Liver Profile Ordered. EDMS 13:44 NOTHING BY MOUTH+DIET ordered. EDMS 13:58 Financial registration complete. lg 14:09 [facility] Payment Agreement was scanned into [employer] and attached to record. lg 14:17 ketorolac 30 mg IVP once ordered. ef1 14:17 Ondansetron 4 mg IVP once ordered. ef1 14:18 NS 0.9% 1000 ml IV at bolus once ordered. ef1 14:18 CT ABD & PELVIS: No Contrast Ordered. EDMS 14:19 CBC with Diff Reviewed. ef1 14:53 UA Reviewed. ef1 14:53 Basic Metabolic Profile Reviewed. ef1 14:53 Liver Profile Reviewed. ef1 15:57 Ciprofloxacin 500 mg PO once ordered. ef1 08/26 09:25 T-Sheet-- Draft Copy was scanned into [employer] and attached to record. gb 12:09 Radiology Report was scanned into [employer] and attached to record. gb Administered Medications: 08/25 14:53 Drug: NS 0.9% 1000 ml [sodium chloride 0.9 % intravenous solution] Route: IV; Rate: kc3 bolus; Site: right antecubital; 14:54 Drug: ketorolac 30 mg [ketorolac 30 mg/mL (1 mL) injection solution (1 mL)] Route: IVP; kc3 Site: right antecubital; 14:54 Drug: Ondansetron 4 mg [ondansetron HCl 2 mg/mL intravenous solution (2 mL)] Route: kc3 IVP; Site: right antecubital; 16:05 Drug: Ciprofloxacin 500 mg [ciprofloxacin 500 mg tablet (1 tabs)] Route: PO; mk4 Signatures: Dispatcher [employer] EDMS Renuka Palacio, Reg Reg gb Anil Alonzo, Reg Reg lg Radha Vargas, PA-C PA-C ef1 Radha JamaRN Kiarra Brown RN RN mk4 Cleo Remy RN RN kc3 The chart was reviewed and I authenticate all verbal orders and agree with the evaluation and treatment provided.Attachments: 14:09 [facility] Payment Agreement lg 08/26 09:25 T-Sheet-- Draft Copy gb Chart Complete MTDD
--- NOTE | 2016-08-27 17:41 | EDDOCDS ---
Nurse's Notes [facility] Name: Rc Pacheco Age: 60 yrs Sex: Male : 1955 Arrival Date: 08/25/2016 Time: 12:50 Bed I2 / M2 Private MD: No Pcp Diagnosis: Displacement of urinary (indwelling) catheter;Hematuria;Urinary tract infection, site not specified Presentation: 08/25 12:56 Presenting complaint: Patient states: catheter is leaking - started last night. states pml able to drain urine. feels urge to strain against catheter. report hematuria continues. has not made appt with urologist yet. Adult Sepsis Screening: The patient does not have new or worsening altered mentation. Patient's respiratory rate is less than 22. Systolic blood pressure is greater than 100. Patient has a qSOFA score of 0- Negative Sepsis Screen. Suicide/Homicide risk assessment- the patient denies having any suicidal and/or homicidal ideations and does not present with any other emotional, behavioral or mental health complaints. Status: Patient is not a manager of allied health services or dependent. Transition of care: patient was not received from another setting of care. 12:56 Acuity: PELON Level 3 pml 12:56 Method Of Arrival: Walkin/Carried/Asstd pml Triage Assessment: 12:58 General: Appears in no apparent distress, comfortable. Pain: Location: suprapubic area pml Pain currently is 6 out of 10 on a pain scale. HIV screening NA for this visit Offered previously. Historical: - Allergies: no known allergies; - Home Meds: 1. none - PMHx: Chronic Back pain; urinary retention; - PSHx: Hernia repair; - Social history: Smoking status: Patient states former smoker of tobacco. No barriers to communication noted, The patient speaks fluent Slovak, Speaks appropriately for age. - Family history: Not pertinent. - : The pt / caregiver states he / she is not on anticoagulants. Home medication list is obtained from the patient. - Exposure Risk Screening:: None identified. Screenin:55 Screening information is obtained from the patient. Fall risk: No risks identified. mk4 Assistance ADL's: requires no assistance with activities of daily living. Abuse/DV Screen: The patient / caregiver reports he/she is: not in a situation that causes fear, pain or injury. Nutritional screening: No deficits noted. Advance Directives: Currently, there is no health care proxy. There is no active DNR order. There is no living will. There is no Power of [employer]. Advance directive information has not previously been placed in an [facility] medical record. Further advance directive information. home support is adequate. Assessment: 13:50 : Raygoza in place draining clear madi urine , pt states he occasionally gets some mk4 leaking around the raygoza after a "spasm" bladder scan done for 0ml in bladder. 13:55 General: Appears in no apparent distress, comfortable, Behavior is cooperative. mk4 14:14 General: Appears uncomfortable, Raygoza catheter removed and 16 Fr raygoza re inserted with mk4 large amount of blood returning with urine, pt states much cramping and burning with raygoza insertion states right flank " cramping" after procedure. 14:55 General: Appears uncomfortable, Behavior is cooperative, moderate amount of bleeding mk4 from penis at meatus, pt states pain and cramping, no urine leaking around catheter. 16:37 General: Appears in no apparent distress, comfortable. Respiratory: No deficits noted. kc3 : raygoza switched to leg bag. Derm: Skin is pink, warm & dry. Vital Signs: 12:53 BP 153 / 86 RA Sitting (auto/reg); Pulse 81; Resp 18; Temp 98.6(O); Pulse Ox 97% on jrd R/A; Weight 77.11 kg (R); Height 5 ft. 8 in. (172.72 cm) (R); Pain 6/10; 15:56 BP 141 / 77; Pulse 72; Resp 16; Temp 99.0(O); Pulse Ox 98% on R/A; lr2 12:53 Body Mass Index 25.85 (77.11 kg, 172.72 cm) [facility] Vitals: 12:53 Log In Time: August 25, 2016 at 12:35. d ED Course: 12:52 Patient visited by Armando Tavarez PCA. jrd 12:52 Patient moved to Waiting jrd 12:53 No Pcp is Private Physician. jrd 12:54 Patient visited by Armando Tavarez PCA. jrd 12:54 Patient moved to Pre RCE jrd 12:57 Triage Initiated pml 12:58 Patient visited by Radha Jama RN. pml 13:14 Patient moved to I2 / M2 ml6 13:34 Patient visited by Kiarra Kaplan RN. mk4 13:40 [facility] ef1 13:41 Ce Domínguez MD is Attending Physician. ef1 13:41 Patient visited by Radha Vargas PA-C. ef1 14:00 Inserted saline lock: 20 gauge in right antecubital area and blood collected. Raygoza mk4 cath inserted 16 Fr. Balloon inflated. To gravity drainage. Urine specimen collected. returned bloody urine. Patient tolerated poorly. 14:09 [facility] Payment Agreement was scanned into [employer] and attached to record. lg 14:10 Patient visited by Spencer Reinoso PCA. jlf 14:12 Urine Culture Sent. mk4 14:12 UA Sent. mk4 14:43 Patient visited by Radha Vargas PA-C. ef1 14:55 The patient / caregiver is instructed regarding the plan of care and ED course. mk4 15:15 Patient visited by Kiarra Kaplan RN. mk4 15:43 Patient visited by Radha Vargas PA-C. ef1 16:00 Nel Zepeda MD is Referral Physician. ef1 16:39 Discontinued IV lock intact, bleeding controlled, pressure dressing applied, No kc3 redness/swelling at site. No procedures done that require assistance. 08/26 08:07 CT ABD & PELVIS: No Contrast Returned. EDMS 09:25 T-Sheet-- Draft Copy was scanned into [employer] and attached to record. gb 12:09 Radiology Report was scanned into [employer] and attached to record. gb Administered Medications: 08/25 14:53 Drug: NS 0.9% 1000 ml [sodium chloride 0.9 % intravenous solution] Route: IV; Rate: kc3 bolus; Site: right antecubital; 14:54 Drug: ketorolac 30 mg [ketorolac 30 mg/mL (1 mL) injection solution (1 mL)] Route: IVP; kc3 Site: right antecubital; 14:54 Drug: Ondansetron 4 mg [ondansetron HCl 2 mg/mL intravenous solution (2 mL)] Route: kc3 IVP; Site: right antecubital; 16:05 Drug: Ciprofloxacin 500 mg [ciprofloxacin 500 mg tablet (1 tabs)] Route: PO; mk4 Order Results: Lab Order: UA; SPEC'M 08/25/16 13:48 Test: APPEARANCE, URINE; Value: CLOUDY; Range: CLEAR; Abnormal: Above high normal; Status: F Test: COLOR, URINE; Value: RED; Range: YELLOW; Abnormal: Above high normal; Status: F Test: PH,URINE; Value: 6.0; Range: 5.0-9.0; Units: UNITS; Status: F Test: SPECIFIC GRAVITY URINE AUTO; Value: 1.019; Range: 1.002-1.035; Status: F Test: PROTEIN, URINE AUTO; Value: 2+; Range: NEGATIVE; Abnormal: Above high normal; Units: mg/dL; Status: F Test: GLUCOSE, URINE (UA) AUTO; Value: NEGATIVE; Range: NEGATIVE; Units: mg/dL; Status: F Test: KETONE, URINE AUTO; Value: NEGATIVE; Range: NEGATIVE; Units: mg/dL; Status: F Test: UROBILINOGEN, URINE AUTO; Value: 0.2; Range: 0.0-2.0; Units: mg/dL; Status: F Test: BILIRUBIN, URINE AUTO; Value: NEGATIVE; Range: NEGATIVE; Status: F Test: NITRITE, URINE AUTO; Value: NEGATIVE; Range: NEGATIVE; Status: F Test: LEUKOCYTE ESTERASE, URINE AUTO; Value: 2+; Range: NEGATIVE; Abnormal: Above high normal; Status: F Test: BLOOD, URINE BLOOD; Value: 3+; Range: NEGATIVE; Abnormal: Above high normal; Status: F Test: WBC, URINE AUTO; Value: TNTC; Range: 0-3; Abnormal: Above high normal; Units: /HPF; Status: F Test: RBC, URINE AUTO; Value: TNTC; Range: 0-3; Abnormal: Above high normal; Units: /HPF; Status: F Test: BACTERIA, URINE AUTO; Value: NEGATIVE; Range: NEGATIVE; Status: F Test: SQUAMOUS EPITHELIAL CELL UR AU; Value: 2; Range: 0-6; Units: /HPF; Status: F Test: HYALINE CAST, URINE AUTO; Value: 0; Range: 0-1; Units: /LPF; Status: F Lab Order: Urine Culture; SPEC'M 08/25/16 13:48 Test: URINE CULTURE; Value: <EXTERNAL COMMENT eCWMed> FULL REPORT IN LAB NOTES (eCW and Medent).; Status: F Test: URINE CULTURE; Value: URINE CULTURE RESULT NO GROWTH; Status: F Lab Order: Basic Metabolic Profile; SPEC'M 08/25/16 13:48 Test: GLUCOSE, FASTING; Value: 112; Range: 80-110; Abnormal: Above high normal; Units: MG/DL; Status: F Test: BLOOD UREA NITROGEN; Value: 12; Range: 7-18; Units: MG/DL; Status: F Test: CREATININE FOR GFR; Value: 0.96; Range: 0.70-1.30; Units: MG/DL; Status: F Test: GLOMERULAR FILTRATION RATE; Value: > 60.0; Range: >49; Status: F Test: SODIUM LEVEL; Value: 141; Range: 136-145; Units: MEQ/L; Status: F Test: POTASSIUM SERUM; Value: 3.9; Range: 3.5-5.1; Units: MEQ/L; Status: F Test: CHLORIDE LEVEL; Value: 103; Range: 98-107; Units: MEQ/L; Status: F Test: CARBON DIOXIDE LEVEL; Value: 30; Range: 21-32; Units: MEQ/L; Status: F Test: ANION GAP; Value: 8; Range: 8-16; Units: MEQ/L; Status: F Test: CALCIUM LEVEL; Value: 9.1; Range: 8.8-10.2; Units: MG/DL; Status: F Test Note: ; Units are mL/min/1.73 m2 Chronic Kidney Disease Staging per NKF: Stage I & II GFR >=60 Normal to Mildly Decreased Stage III GFR 30-59 Moderately Decreased Stage IV GFR 15-29 Severely Decreased Stage V GFR <15 Very Little GFR Left ESRD GFR <15 on POULTRY SERVICE TECHNICIAN Lab Order: CBC with Diff; SPEC'M 08/25/16 13:48 Test: WHITE BLOOD COUNT; Value: 7.3; Range: 4.0-10.0; Units: K/mm3; Status: F Test: RED BLOOD COUNT; Value: 4.88; Range: 4.30-6.10; Units: M/mm3; Status: F Test: HEMOGLOBIN; Value: 15.8; Range: 14.0-18.0; Units: g/dl; Status: F Test: HEMATOCRIT; Value: 45.3; Range: 42.0-52.0; Units: %; Status: F Test: MEAN CORPUSCULAR VOLUME; Value: 92.8; Range: 80.0-96.0; Units: fl; Status: F Test: MEAN CORPUSCULAR HEMOGLOBIN; Value: 32.4; Range: 27.0-33.0; Units: pg; Status: F Test: MEAN CORPUSCULAR HGB CONC; Value: 34.9; Range: 32.0-36.5; Units: g/dl; Status: F Test: RED CELL DISTRIBUTION WIDTH; Value: 12.4; Range: 11.5-14.5; Units: %; Status: F Test: PLATELET COUNT, AUTOMATED; Value: 178; Range: 150-450; Units: k/mm3; Status: F Test: NEUTROPHILS %; Value: 63.2; Range: 36.0-66.0; Units: %; Status: F Test: LYMPH %; Value: 25.5; Range: 24.0-44.0; Units: %; Status: F Test: MONO %; Value: 5.0; Range: 0.0-5.0; Units: %; Status: F Test: EOS %; Value: 3.4; Range: 0.0-3.0; Abnormal: Above high normal; Units: %; Status: F Test: BASO %; Value: 1.0; Range: 0.0-1.0; Units: %; Status: F Test: LARGE UNSTAINED CELL %; Value: 1.9; Range: 0.0-4.0; Units: %; Status: F Test: NEUTROPHILS #; Value: 4.6; Range: 1.8-7.7; Units: K/mm3; Status: F Test: LYMPH #; Value: 2.0; Range: 1.5-4.5; Units: K/mm3; Status: F Test: MONO #; Value: 0.4; Range: 0.0-0.8; Units: K/mm3; Status: F Test: EOS #; Value: 0.2; Range: 0.0-0.50; Units: K/mm3; Status: F Test: BASO #; Value: 0.1; Range: 0.0-0.2; Units: K/mm3; Status: F Test: LARGE UNSTAINED CELL #; Value: 0.1; Range: 0.0-0.4; Units: K/mm3; Status: F Lab Order: Liver Profile; SPEC'M 08/25/16 13:48 Test: AST/SGOT; Value: 26; Range: 15-37; Units: U/L; Status: F Test: ALT/SGPT; Value: 53; Range: 12-78; Units: U/L; Status: F Test: ALKALINE PHOSPHATASE; Value: 103; Range: 45-117; Units: U/L; Status: F Test: BILIRUBIN,TOTAL; Value: 0.3; Range: 0.2-1.0; Units: MG/DL; Status: F Test: BILIRUBIN,DIRECT; Value: < 0.1; Range: 0.0-0.2; Units: MG/DL; Status: F Test: TOTAL PROTEIN; Value: 7.7; Range: 6.4-8.2; Units: GM/DL; Status: F Test: ALBUMIN; Value: 3.9; Range: 3.2-5.2; Units: GM/DL; Status: F Test: ALBUMIN/GLOBULIN RATIO; Value: 1.03; Range: 1.00-1.93; Status: F Radiology Order: CT ABD & PELVIS: No Contrast Test: CT ABD & PELVIS: No Contrast REASON FOR EXAMINATION: hematuria; Clinical: Hematuria.; ; Findings:; Lung bases clear. Visualized heart and pericardium normal.; ; Liver, spleen, pancreas, bilateral adrenal glands and kidneys are normal.; Specifically, there is no perinephric stranding, hydroureteronephrosis,; intrarenal or obstructing ureteral calculi. The patient is status post; cholecystectomy and appendectomy. The enteric system is without obstruction or; acute inflammatory process. Sigmoid diverticula noted without acute; diverticulitis. Raygoza catheter in collapsed bladder. Enlarged prostate gland.; No pelvic fluid or ascites. No obvious adenopathy. No mass lesion. No free; air. Atherosclerotic changes to the aorta without aneurysm. Degenerative; changes the musculoskeletal structures without focal osseous abnormality.; Sacroiliitis involving the right SI joint.; ; Impression:; No acute intra-abdominal or pelvic pathology appreciated.; Normal urinary tract system.; No ascites.; ; ; Signed by; Graham Darby MD 08/25/2016 02:58 P; Outcome: 16:00 Discharge ordered by Provider. ef1 16:38 Discharge Assessment: Patient awake, alert and oriented x 3. No cognitive and/or kc3 functional deficits noted. Patient verbalized understanding of disposition instructions. patient administered narcotics - no. The following High Risk Discharge criteria are identified: None. Discharged to home ambulatory. Condition: stable. Discharge instructions given to patient, Instructed on discharge instructions, follow up and referral plans. medication usage, Demonstrated understanding of instructions, medications, Pt was receptive of discharge instructions/ teaching. Prescriptions given X 1. CT Study completed. Property :Personal belongings accompany Pt. 16:40 Patient left the ED. kc3 Signatures: Dispatcher [employer] EDMS Renuka Palacio, Reg Reg gb Anil Alonzo, Reg Reg lg Radha Vargas, PA-C PA-C ef1 Yunier Zaman, RN RN ml6 Radha Jama,RN RN Kiarra Barron RN RN mk4 Spencer Reinoso, YOUTH COORDINATOR YOUTH COORDINATOR jlArmando Jeffers, YOUTH COORDINATOR YOUTH COORDINATOR Cleo Rodrigez,RN RN [email or web address] Flora Michaud Corrections: (The following items were deleted from the chart) 16:40 16:38 No special radiology studies were completed kc3 kc3 Chart Complete MTDD
--- NOTE | 2016-08-27 17:41 | EDDOCDS ---
Physician Documentation [facility] Name: Rc Pacheco Age: 60 yrs Sex: Male : 1955 Arrival Date: 08/25/2016 Time: 12:50 Bed I2 / M2 Private MD: No Pcp Disposition: 08/25/16 16:00 Discharged to Home/Self Care. Impression: Displacement of urinary (indwelling) catheter, Hematuria, Urinary tract infection, site not specified. - Condition is Stable. - Discharge Instructions: Hematuria, Adult, Urinary Tract Infection, [id number], Song Catheter Care, Adult, [id number]. - Prescriptions for Cipro 500 mg Oral Tablet - take 1 tablet by ORAL route every 12 hours; 14 tablet. - Medication Reconciliation, Local Pharmacy Hours form. - Follow up: Nel Zepeda; When: 1 - 2 days; Reason: Further diagnostic work-up, Recheck today's complaints, Continuance of care. Follow up: Emergency Department; Reason: Worsening of conditions. - Problem is new. - Symptoms have improved. Historical: - Allergies: no known allergies; - Home Meds: 1. none - PMHx: Chronic Back pain; urinary retention; - PSHx: Hernia repair; - Social history: Smoking status: Patient states former smoker of tobacco. No barriers to communication noted, The patient speaks fluent Divehi, Speaks appropriately for age. - Family history: Not pertinent. - : The pt / caregiver states he / she is not on anticoagulants. Home medication list is obtained from the patient. - Exposure Risk Screening:: None identified. Vital Signs: 08/25 12:53 BP 153 / 86 RA Sitting (auto/reg); Pulse 81; Resp 18; Temp 98.6(O); Pulse Ox 97% on jrd R/A; Weight 77.11 kg / 170 lbs (R); Height 5 ft. 8 in. (172.72 cm) (R); Pain 6/10; 15:56 BP 141 / 77; Pulse 72; Resp 16; Temp 99.0(O); Pulse Ox 98% on R/A; lr2 12:53 Body Mass Index 25.85 (77.11 kg, 172.72 cm) jrd MDM: 13:41 Song ordered. ef1 13:42 Undress patient appropriately for examination ordered. ef1 13:42 Bladder Scan please ordered. ef1 13:42 IV Saline Lock ordered. ef1 13:42 UA Ordered. EDMS 13:42 Urine Culture Ordered. EDMS 13:43 Basic Metabolic Profile Ordered. EDMS 13:43 CBC with Diff Ordered. EDMS 13:43 Liver Profile Ordered. EDMS 13:44 NOTHING BY MOUTH+DIET ordered. EDMS 13:58 Financial registration complete. lg 14:09 [facility] Payment Agreement was scanned into [employer] and attached to record. lg 14:17 ketorolac 30 mg IVP once ordered. ef1 14:17 Ondansetron 4 mg IVP once ordered. ef1 14:18 NS 0.9% 1000 ml IV at bolus once ordered. ef1 14:18 CT ABD & PELVIS: No Contrast Ordered. EDMS 14:19 CBC with Diff Reviewed. ef1 14:53 UA Reviewed. ef1 14:53 Basic Metabolic Profile Reviewed. ef1 14:53 Liver Profile Reviewed. ef1 15:57 Ciprofloxacin 500 mg PO once ordered. ef1 08/26 09:25 T-Sheet-- Draft Copy was scanned into [employer] and attached to record. gb 12:09 Radiology Report was scanned into [employer] and attached to record. gb Administered Medications: 08/25 14:53 Drug: NS 0.9% 1000 ml [sodium chloride 0.9 % intravenous solution] Route: IV; Rate: kc3 bolus; Site: right antecubital; 14:54 Drug: ketorolac 30 mg [ketorolac 30 mg/mL (1 mL) injection solution (1 mL)] Route: IVP; kc3 Site: right antecubital; 14:54 Drug: Ondansetron 4 mg [ondansetron HCl 2 mg/mL intravenous solution (2 mL)] Route: kc3 IVP; Site: right antecubital; 16:05 Drug: Ciprofloxacin 500 mg [ciprofloxacin 500 mg tablet (1 tabs)] Route: PO; mk4 Signatures: Dispatcher [employer] EDMS Renuka Palacio, Reg Reg gb Anil Alonzo, Reg Reg lg Radha Vargas, PA-C PA-C ef1 Radha JamaRN Kiarra Brown RN RN mk4 Cleo Remy RN RN kc3 The chart was reviewed and I authenticate all verbal orders and agree with the evaluation and treatment provided.Attachments: 14:09 [facility] Payment Agreement lg 08/26 09:25 T-Sheet-- Draft Copy gb Chart Complete MTDD
== END 2016-08-25 16:40 | disposition home or self-care (01) ==
LOC: M ED 12:50
DX: R31.9 Hematuria, unspecified (principal); T83.098A Other mechanical complication of other urinary catheter, initial encounter; N39.0 Urinary tract infection, site not specified; G89.29 Other chronic pain; M54.9 Dorsalgia, unspecified; R33.9 Retention of urine, unspecified; Z87.891 Personal history of nicotine dependence
CPT/HCPCS: 36415; 51702; 74176; 80048; 80076; 81001; 85025; 87086; 96374; 96375; 99285; J1885; J2405

== ENCOUNTER 2016-08-28 10:58 | Emergency (ER) | payer BC ==
--- NOTE | 2016-08-28 12:58 | EDDOCDS ---
Physician Documentation [facility] Name: Rc Pacheco Age: 60 yrs Sex: Male : 1955 Arrival Date: 08/28/2016 Time: 10:58 Bed PD Private MD: NO PRIMARY PHYSICIAN, . Disposition: 08/28/16 12:44 Discharged to Home/Self Care. Impression: Retention of urine - raygoza discontinuation, able to urinate without difficulty. - Condition is Stable. - Discharge Instructions: Urinary Retention, Acute, Male. - Medication Reconciliation, Local Pharmacy Hours form. - Follow up: Nel Zepeda MD; When: As previously arranged; Reason: Recheck today's complaints, Continuance of care. Follow up: Emergency Department; When: As needed; Reason: If symptoms return. - Problem is new. - Symptoms are resolved. - Notes: stay well hydrated. complete full course of antibiotics as prescribed. follow up with urology as scheduled next week. Historical: - Allergies: No known drug Allergies; - Home Meds: 1. Cipro 500 mg Oral tab 1 tab every 12 hours (Last dose: 08/28/2016 04:30) - PMHx: Chronic Back pain; urinary retention; - PSHx: Hernia repair; - Social history: Smoking status: Patient states former smoker of tobacco. No barriers to communication noted, The patient speaks fluent Irish. - Family history: Not pertinent. - : The pt / caregiver states he / she is not on anticoagulants. Home medication list is obtained from the patient. - Exposure Risk Screening:: None identified. Vital Signs: 08/28 11:00 BP 135 / 81; Pulse 88; Resp 18 S; Temp 98.5(O); Pulse Ox 97% on R/A; Weight 77.11 kg / gr2 170 lbs (R); Height 5 ft. 8 in. (172.72 cm) (R); Pain 0/10; 12:55 BP 156 / 83; Pulse 84; Resp 16; Temp 99; Pulse Ox 96% ; Pain 0/10; cjh 11:00 Body Mass Index 25.85 (77.11 kg, 172.72 cm) gr2 MDM: 11:26 Financial registration complete. lg 11:59 Misc. Nursing Order ordered. ar2 12:13 [facility] Payment Agreement was scanned into [employer] and attached to record. lg Signatures: Samantha Yee RN RN kpj Anil Alonzo, Robles Reg lg Lorenzo Caballero, ANGELA MILLER arKiersten Chaidez RN RN [facility] The chart was reviewed and I authenticate all verbal orders and agree with the evaluation and treatment provided.Attachments: 12:13 [facility] Payment Agreement lg MTDD
--- NOTE | 2016-08-28 12:59 | EDDOCDS ---
Nurse's Notes [facility] Name: Rc Pacheco Age: 60 yrs Sex: Male : 1955 Arrival Date: 08/28/2016 Time: 10:58 Bed PD Private MD: NO PRIMARY PHYSICIAN, . Diagnosis: Retention of urine-raygoza discontinuation, able to urinate without difficulty Presentation: 08/28 11:04 Presenting complaint: Patient states: urinary catheter in place since last Thursday, kpj leaking around catheter,denies blood or clots in urine. Adult Sepsis Screening: The patient does not have new or worsening altered mentation. Patient's respiratory rate is less than 22. Systolic blood pressure is greater than 100. Patient has a qSOFA score of 0- Negative Sepsis Screen. Suicide/Homicide risk assessment- the patient denies having any suicidal and/or homicidal ideations and does not present with any other emotional, behavioral or mental health complaints. Status: Patient is not a representative phlebotomy services or dependent. Transition of care: patient was not received from another setting of care. 11:04 Acuity: PELON Level 4 [facility] 11:04 Method Of Arrival: Walkin/Carried/Asstd [facility] Triage Assessment: 11:07 General: Appears in no apparent distress, Behavior is appropriate for age, pleasant. kpj Pain: Denies pain. Pt Declines HIV testing. Neurological: Level of Consciousness is awake, alert, Oriented to person, place, time. Respiratory: Airway is patent Respiratory effort is even, unlabored. : Reports leaking around his catheter. Derm: Skin is pink, warm & dry. Historical: - Allergies: No known drug Allergies; - Home Meds: 1. Cipro 500 mg Oral tab 1 tab every 12 hours (Last dose: 08/28/2016 04:30) - PMHx: Chronic Back pain; urinary retention; - PSHx: Hernia repair; - Social history: Smoking status: Patient states former smoker of tobacco. No barriers to communication noted, The patient speaks fluent Nepali. - Family history: Not pertinent. - : The pt / caregiver states he / she is not on anticoagulants. Home medication list is obtained from the patient. - Exposure Risk Screening:: None identified. Screenin:21 Screening information is obtained from the patient. Fall risk: No risks identified. cjh Assistance ADL's: requires no assistance with activities of daily living. Abuse/DV Screen: The patient / caregiver reports he/she is: not in a situation that causes fear, pain or injury. Nutritional screening: No deficits noted. Advance Directives: There is no active DNR order. home support is adequate. Assessment: 12:21 General: Appears in no apparent distress, comfortable, Behavior is appropriate for age, [facility] cooperative, pleasant, discontinued raygoza catheter per order, note small amount clear yellow urine in leg bag. Pain: Denies pain. Neurological: Level of Consciousness is awake, alert, Oriented to person, place, time. Respiratory: Airway is patent Respiratory effort is even, unlabored, Respiratory pattern is regular, symmetrical. : discontinued Urine is clear. 12:55 General: Appears in no apparent distress, comfortable, Behavior is appropriate for age, [facility] cooperative, reviewed discharge instructions, patient denies further needs at this time, declines offer of additional assistance. : voided approximately 100cc clear yellow urine in urinal Reports. Vital Signs: 11:00 BP 135 / 81; Pulse 88; Resp 18 S; Temp 98.5(O); Pulse Ox 97% on R/A; Weight 77.11 kg gr2 (R); Height 5 ft. 8 in. (172.72 cm) (R); Pain 0/10; 12:55 BP 156 / 83; Pulse 84; Resp 16; Temp 99; Pulse Ox 96% ; Pain 0/10; [facility] 11:00 Body Mass Index 25.85 (77.11 kg, 172.72 cm) gr2 Vitals: 11:00 Log In Time: August 28, 2016 at 11:00. gr2 ED Course: 11:00 Patient visited by David Hurd. gr2 11:00 NO PRIMARY PHYSICIAN, . is Private Physician. gr2 11:00 Patient moved to Waiting gr2 11:02 Patient visited by David Hurd. gr2 11:02 Patient moved to Pre RCE gr2 11:06 Triage Initiated [facility] 11:10 Patient moved to Triage 2 [facility] 11:11 Lorenzo Caballero [facility]-C [facility] ar2 11:11 Tahir Pineda MD is Attending Physician. ar2 11:11 Patient visited by Lorenzo Caballero PA-C. ar2 11:54 Patient moved to PD [facility] 12:13 [facility] Payment Agreement was scanned into [employer] and attached to record. 12:21 The patient / caregiver is instructed regarding the plan of care and ED course. [facility] 12:21 No IV's were initiated during this patient's visit. No procedures done that require [facility] assistance. 12:25 Patient visited by Kiersten Britt,FIOR. [facility] 12:43 Nel Zepeda MD is Referral Physician. ar2 Output: 12:39 Urine: 100.00ml (Voided); Total: 100.00ml. [facility] Order Results: There are currently no results for this order. Outcome: 12:44 Discharge ordered by Provider. ar2 12:55 Discharge Assessment: Patient awake, alert and oriented x 3. No cognitive and/or [facility] functional deficits noted. Patient verbalized understanding of disposition instructions. patient administered narcotics - no. The following High Risk Discharge criteria are identified: None. Discharged to home ambulatory. Condition: good Condition: stable Condition: improved. Discharge instructions given to patient, Instructed on discharge instructions, follow up and referral plans. medication usage, Demonstrated understanding of instructions, medications, Pt was receptive of discharge instructions/ teaching. No special radiology studies were completed. Property :Personal belongings accompany Pt. 12:57 Patient left the ED. [facility] Signatures: Samantha Yee RN RN Valarie Miller RN RN [facility] Anil Alonzo, Robles Reg Lorenzo Caballero PA-C PA-C ar2 Kiersten Britt RN RN [facility] David Hurd gr2 MTDD
--- NOTE | 2016-08-30 13:59 | EDDOCDS ---
Physician Documentation [facility] Name: Rc Pacheco Age: 60 yrs Sex: Male : 1955 Arrival Date: 08/28/2016 Time: 10:58 Bed PD Private MD: NO PRIMARY PHYSICIAN, . Disposition: 08/28/16 12:44 Discharged to Home/Self Care. Impression: Retention of urine - raygoza discontinuation, able to urinate without difficulty. - Condition is Stable. - Discharge Instructions: Urinary Retention, Acute, Male. - Medication Reconciliation, Local Pharmacy Hours form. - Follow up: Nel Zepeda MD; When: As previously arranged; Reason: Recheck today's complaints, Continuance of care. Follow up: Emergency Department; When: As needed; Reason: If symptoms return. - Problem is new. - Symptoms are resolved. - Notes: stay well hydrated. complete full course of antibiotics as prescribed. follow up with urology as scheduled next week. Historical: - Allergies: No known drug Allergies; - Home Meds: 1. Cipro 500 mg Oral tab 1 tab every 12 hours (Last dose: 08/28/2016 04:30) - PMHx: Chronic Back pain; urinary retention; - PSHx: Hernia repair; - Social history: Smoking status: Patient states former smoker of tobacco. No barriers to communication noted, The patient speaks fluent Micronesian. - Family history: Not pertinent. - : The pt / caregiver states he / she is not on anticoagulants. Home medication list is obtained from the patient. - Exposure Risk Screening:: None identified. Vital Signs: 08/28 11:00 BP 135 / 81; Pulse 88; Resp 18 S; Temp 98.5(O); Pulse Ox 97% on R/A; Weight 77.11 kg / gr2 170 lbs (R); Height 5 ft. 8 in. (172.72 cm) (R); Pain 0/10; 12:55 BP 156 / 83; Pulse 84; Resp 16; Temp 99; Pulse Ox 96% ; Pain 0/10; cjh 11:00 Body Mass Index 25.85 (77.11 kg, 172.72 cm) gr2 MDM: 11:26 Financial registration complete. lg 11:59 Misc. Nursing Order ordered. ar2 12:[address] [facility] Payment Agreement was scanned into [employer] and attached to record. lg 20:57 T-Sheet-- Draft Copy was scanned into [employer] and attached to record. klr Signatures: Samantha Yee RN RN Anil Villareal, Robles Arboldea lg Lorenzo Caballero, PAChirag PAKiersten Wilburn RN RN Scarlett Mccollum klchaz The chart was reviewed and I authenticate all verbal orders and agree with the evaluation and treatment provided.Attachments: 12:13 [facility] Payment Agreement lg 20:57 T-Sheet-- Draft Copy klr Chart Complete MTDD
--- NOTE | 2016-08-30 13:59 | EDDOCDS ---
Nurse's Notes [facility] Name: Rc Pacheco Age: 60 yrs Sex: Male : 1955 Arrival Date: 08/28/2016 Time: 10:58 Bed PD Private MD: NO PRIMARY PHYSICIAN, . Diagnosis: Retention of urine-raygoza discontinuation, able to urinate without difficulty Presentation: 08/28 11:04 Presenting complaint: Patient states: urinary catheter in place since last Thursday, kpj leaking around catheter,denies blood or clots in urine. Adult Sepsis Screening: The patient does not have new or worsening altered mentation. Patient's respiratory rate is less than 22. Systolic blood pressure is greater than 100. Patient has a qSOFA score of 0- Negative Sepsis Screen. Suicide/Homicide risk assessment- the patient denies having any suicidal and/or homicidal ideations and does not present with any other emotional, behavioral or mental health complaints. Status: Patient is not a resident services director or dependent. Transition of care: patient was not received from another setting of care. 11:04 Acuity: PELON Level 4 [facility] 11:04 Method Of Arrival: Walkin/Carried/Asstd [facility] Triage Assessment: 11:07 General: Appears in no apparent distress, Behavior is appropriate for age, pleasant. kpj Pain: Denies pain. Pt Declines HIV testing. Neurological: Level of Consciousness is awake, alert, Oriented to person, place, time. Respiratory: Airway is patent Respiratory effort is even, unlabored. : Reports leaking around his catheter. Derm: Skin is pink, warm & dry. Historical: - Allergies: No known drug Allergies; - Home Meds: 1. Cipro 500 mg Oral tab 1 tab every 12 hours (Last dose: 08/28/2016 04:30) - PMHx: Chronic Back pain; urinary retention; - PSHx: Hernia repair; - Social history: Smoking status: Patient states former smoker of tobacco. No barriers to communication noted, The patient speaks fluent Sinhala. - Family history: Not pertinent. - : The pt / caregiver states he / she is not on anticoagulants. Home medication list is obtained from the patient. - Exposure Risk Screening:: None identified. Screenin:21 Screening information is obtained from the patient. Fall risk: No risks identified. cjh Assistance ADL's: requires no assistance with activities of daily living. Abuse/DV Screen: The patient / caregiver reports he/she is: not in a situation that causes fear, pain or injury. Nutritional screening: No deficits noted. Advance Directives: There is no active DNR order. home support is adequate. Assessment: 12:21 General: Appears in no apparent distress, comfortable, Behavior is appropriate for age, [facility] cooperative, pleasant, discontinued raygoza catheter per order, note small amount clear yellow urine in leg bag. Pain: Denies pain. Neurological: Level of Consciousness is awake, alert, Oriented to person, place, time. Respiratory: Airway is patent Respiratory effort is even, unlabored, Respiratory pattern is regular, symmetrical. : discontinued Urine is clear. 12:55 General: Appears in no apparent distress, comfortable, Behavior is appropriate for age, [facility] cooperative, reviewed discharge instructions, patient denies further needs at this time, declines offer of additional assistance. : voided approximately 100cc clear yellow urine in urinal Reports. Vital Signs: 11:00 BP 135 / 81; Pulse 88; Resp 18 S; Temp 98.5(O); Pulse Ox 97% on R/A; Weight 77.11 kg gr2 (R); Height 5 ft. 8 in. (172.72 cm) (R); Pain 0/10; 12:55 BP 156 / 83; Pulse 84; Resp 16; Temp 99; Pulse Ox 96% ; Pain 0/10; [facility] 11:00 Body Mass Index 25.85 (77.11 kg, 172.72 cm) gr2 Vitals: 11:00 Log In Time: August 28, 2016 at 11:00. gr2 ED Course: 11:00 Patient visited by David Hurd. gr2 11:00 NO PRIMARY PHYSICIAN, . is Private Physician. gr2 11:00 Patient moved to Waiting gr2 11:02 Patient visited by David Hurd. gr2 11:02 Patient moved to Pre RCE gr2 11:06 Triage Initiated [facility] 11:10 Patient moved to Triage 2 [facility] 11:11 Lorenzo Caballreo [facility]C [facility] ar2 11:11 Tahir Pineda MD is Attending Physician. ar2 11:11 Patient visited by Lorenzo Caballero PA-C. ar2 11:54 Patient moved to PD [facility] 12:13 [facility] Payment Agreement was scanned into [employer] and attached to record. 12:21 The patient / caregiver is instructed regarding the plan of care and ED course. [facility] 12:21 No IV's were initiated during this patient's visit. No procedures done that require [facility] assistance. 12:25 Patient visited by Kiersten Britt,FIOR. [facility] 12:43 Nel Zepeda MD is Referral Physician. ar2 20:57 T-Sheet-- Draft Copy was scanned into [employer] and attached to record. klr Output: 12:39 Urine: 100.00ml (Voided); Total: 100.00ml. [facility] Order Results: There are currently no results for this order. Outcome: 12:44 Discharge ordered by Provider. ar2 12:55 Discharge Assessment: Patient awake, alert and oriented x 3. No cognitive and/or [facility] functional deficits noted. Patient verbalized understanding of disposition instructions. patient administered narcotics - no. The following High Risk Discharge criteria are identified: None. Discharged to home ambulatory. Condition: good Condition: stable Condition: improved. Discharge instructions given to patient, Instructed on discharge instructions, follow up and referral plans. medication usage, Demonstrated understanding of instructions, medications, Pt was receptive of discharge instructions/ teaching. No special radiology studies were completed. Property :Personal belongings accompany Pt. 12:57 Patient left the ED. [facility] Signatures: Samantha Yee RN FIOR [facility] Valarie Uribe RN RN [facility] Anil Alonzo, Reg Reg lg Lorenzo Caballero PA-C PA-C ar2 Kiersten Britt,FIOR CHILDRESS [facility] David Hurd 2 Scarlett Townsend [facility] Chart Complete MTDD
--- NOTE | 2016-08-30 13:59 | EDDOCDS ---
Physician Documentation [facility] Name: Rc Pacheco Age: 60 yrs Sex: Male : 1955 Arrival Date: 08/28/2016 Time: 10:58 Bed PD Private MD: NO PRIMARY PHYSICIAN, . Disposition: 08/28/16 12:44 Discharged to Home/Self Care. Impression: Retention of urine - raygoza discontinuation, able to urinate without difficulty. - Condition is Stable. - Discharge Instructions: Urinary Retention, Acute, Male. - Medication Reconciliation, Local Pharmacy Hours form. - Follow up: Nel Zepeda MD; When: As previously arranged; Reason: Recheck today's complaints, Continuance of care. Follow up: Emergency Department; When: As needed; Reason: If symptoms return. - Problem is new. - Symptoms are resolved. - Notes: stay well hydrated. complete full course of antibiotics as prescribed. follow up with urology as scheduled next week. Historical: - Allergies: No known drug Allergies; - Home Meds: 1. Cipro 500 mg Oral tab 1 tab every 12 hours (Last dose: 08/28/2016 04:30) - PMHx: Chronic Back pain; urinary retention; - PSHx: Hernia repair; - Social history: Smoking status: Patient states former smoker of tobacco. No barriers to communication noted, The patient speaks fluent Tristanian. - Family history: Not pertinent. - : The pt / caregiver states he / she is not on anticoagulants. Home medication list is obtained from the patient. - Exposure Risk Screening:: None identified. Vital Signs: 08/28 11:00 BP 135 / 81; Pulse 88; Resp 18 S; Temp 98.5(O); Pulse Ox 97% on R/A; Weight 77.11 kg / gr2 170 lbs (R); Height 5 ft. 8 in. (172.72 cm) (R); Pain 0/10; 12:55 BP 156 / 83; Pulse 84; Resp 16; Temp 99; Pulse Ox 96% ; Pain 0/10; cjh 11:00 Body Mass Index 25.85 (77.11 kg, 172.72 cm) gr2 MDM: 11:26 Financial registration complete. lg 11:59 Misc. Nursing Order ordered. ar2 12:13 [facility] [place] [place] Payment Agreement was scanned into [employer] and attached to record. lg 20:57 T-Sheet-- Draft Copy was scanned into [employer] and attached to record. klr Signatures: Samantha Yee RN RN Anil Villareal, Robles Arboleda lg Lorenzo Caballero, PAChirag PAKiersten Wilburn RN RN Scarlett Mccollum klchaz The chart was reviewed and I authenticate all verbal orders and agree with the evaluation and treatment provided.Attachments: 12:13 [facility] Payment Agreement lg 20:57 T-Sheet-- Draft Copy klr Chart Complete MTDD
== END 2016-08-28 12:57 | disposition home or self-care (01) ==
LOC: M ED 10:58
DX: R33.9 Retention of urine, unspecified (principal); G89.29 Other chronic pain; Z87.891 Personal history of nicotine dependence

== ENCOUNTER → 2016-09-03 | Outpatient (CLI) | payer BC | LOC: M SMT 13:43 | PROVIDERS: ATTEND Nurse Practitioner Women's Health | DX: Z12.5 Encounter for screening for malignant neoplasm of prostate (principal) | CPT/HCPCS: 36415; G0103 ==

== ENCOUNTER → 2016-10-02 | Outpatient (CLI) | payer BC ==
[2016-10-04 00:06] LABS: PSA TOTAL 3.5 ng/mL (0.0-4.0)
== END ==
LOC: M SMT 08:13
PROVIDERS: ATTEND Nurse Practitioner Women's Health
DX: R97.20 Elevated prostate specific antigen [PSA] (principal)

== ENCOUNTER 2018-04-07 10:04 | Emergency (ER) | payer SELFPAY, BC ==
[2018-04-07] MEDS: LIDOCAINE 2% JELLY 30 ML TOP (10:30)
[2018-04-07 10:58] LABS: KETONE, URINE AUTO RFX NEGATIVE (NEGATIVE); LEUKOCYTE ESTERASE UR AUTO RFX NEGATIVE (NEGATIVE); MUCUS, URINE RFX SMALL (NEGATIVE); NITRITE, URINE AUTO RFX NEGATIVE (NEGATIVE); RBC, URINE AUTO RFX 6 /HPF (0-3); SPECIFIC GRAVITY UR AUTO RFX 1.004 (1.002-1.035); SQUAM EPITHELIAL CELL UR AURFX 0 /HPF (0-6); WBC, URINE AUTO RFX 0 /HPF (0-3)
== END 2018-04-07 11:59 | disposition home or self-care (01) ==
LOC: M ED 10:04
DX: R33.9 Retention of urine, unspecified (principal); N40.1 Benign prostatic hyperplasia with lower urinary tract symptoms; Z87.891 Personal history of nicotine dependence
CPT/HCPCS: 81001

== ENCOUNTER 2018-04-15 07:12 | Emergency (ER) | payer SELFPAY | END 2018-04-15 08:16 | disposition home or self-care (01) | LOC: M ED 07:12 | DX: Z46.6 Encounter for fitting and adjustment of urinary device (principal); N40.0 Benign prostatic hyperplasia without lower urinary tract symptoms; Z87.891 Personal history of nicotine dependence | CPT/HCPCS: 99282 ==

== ENCOUNTER 2018-09-03 16:56 | Emergency (ER) | payer SELFPAY ==
[~2018-09-03] VITALS: Ht 172.7 cm; Wt 88.6 kg
[2018-09-03 17:29] VITALS: BP 154/82
[2018-09-03] MEDS ORDERED: CIPR-249 PO (18:16)
== END 2018-09-03 18:36 | disposition home or self-care (01) ==
LOC: M ED 16:56
DX: R33.9 Retention of urine, unspecified (principal); N39.0 Urinary tract infection, site not specified

== ENCOUNTER → 2019-04-26 | Outpatient (CLI) | payer SELFPAY ==
[~2019-04-26] MED LIST: CIPR-249 PO
== END ==
LOC: M SMT 08:58
PROVIDERS: ATTEND Nurse Practitioner Women's Health
DX: Z12.5 Encounter for screening for malignant neoplasm of prostate (principal)
CPT/HCPCS: 36415; G0103

== ENCOUNTER 2020-10-04 11:07 | Emergency (ER) | payer MEDICARE, OTHER, SELFPAY ==
[~2020-10-04] VITALS: Ht 172.7 cm; Wt 70.5 kg
[2020-10-04] MEDS ORDERED: TAMS1CAP17 (11:16)
[2020-10-04] MEDS ORDERED: FINA5TAB2 (11:16)
[2020-10-04] MEDS ORDERED: NS 1,000 ML IV ONE ×2 (11:25→11:50)
[2020-10-04 12:24] LABS: VENOUS BASE EXCESS -2.2 (-2.0-2.0); VENOUS HCO3 21.8 MEQ/L (23.0-27.0); VENOUS PARTIAL PRESSURE O2 66.5 mmHg (30.0-50.0); VENOUS PH 7.401 UNITS (7.330-7.430); VENOUS STANDARD HCO3 22.6 MEQ/L
[2020-10-04 12:28] LABS: BASO # 0.1 10^3/uL (0.0-0.2); BASO % 0.8 % (0.0-1.0); EOS # 0.1 10^3/uL (0.0-0.5); EOS % 1.2 % (0.0-3.0); HEMATOCRIT 50.8 % (42.0-52.0); HEMOGLOBIN 18.4 g/dl (13.5-17.5); LYMPH # 1.3 10^3/uL (1.5-5.0); LYMPH % 16.9 % (24.0-44.0); MEAN CORPUSCULAR HEMOGLOBIN 32.6 pg (27.0-33.0); MEAN CORPUSCULAR HGB CONC 36.2 g/dl (32.0-36.5); MEAN CORPUSCULAR VOLUME 89.9 fl (80.0-96.0); MONO # 0.5 10^3/uL (0.0-0.8); MONO % 6.6 % (2.0-8.0); NEUTROPHILS # 5.7 10^3/uL (1.5-8.5); NEUTROPHILS % 73.9 % (36.0-66.0); PLATELET COUNT, AUTOMATED 147 10^3/uL (150-450); RED BLOOD COUNT 5.65 10^6/uL (4.30-6.10); WHITE BLOOD COUNT 7.8 10^3/uL (4.0-10.0)
[2020-10-04 13:04] LABS: ALBUMIN 3.7 GM/DL (3.2-5.2); ALT/SGPT 85 U/L (12-78); BILIRUBIN,DIRECT 0.1 MG/DL (0.0-0.2); BILIRUBIN,TOTAL 0.7 MG/DL (0.2-1.0); BLOOD UREA NITROGEN 21 MG/DL (7-18); CALCIUM LEVEL 9.5 MG/DL (8.8-10.2); CARBON DIOXIDE LEVEL 27 MEQ/L (21-32); CHLORIDE LEVEL 92 MEQ/L (98-107); CREATININE FOR GFR 0.99 MG/DL (0.70-1.30); GLOMERULAR FILTRATION RATE > 60.0 (>49); GLUCOSE, FASTING 545 MG/DL (70-100); POTASSIUM SERUM 4.5 MEQ/L (3.5-5.1); SODIUM LEVEL 127 MEQ/L (136-145); TOTAL PROTEIN 7.4 GM/DL (6.4-8.2)
[2020-10-04] MEDS ORDERED: HumuLIN R (REGULAR) INSULIN (NovoLIN R) **100U/ML** PER UNIT IV ONE (15:20)
[2020-10-04] MEDS ORDERED: METF-839 PO (15:29)
[2020-10-04] MEDS ORDERED: AMOX500C PO (15:30)
[2020-10-04 15:41] LABS: HEMOGLOBIN A1c > 14.0 %
[2020-10-04] MEDS ORDERED: BLOOKIT21 XX (17:53)
[2020-10-04] MEDS ORDERED: GLUC1TES2 XX (17:53)
[2020-10-04] MEDS ORDERED: LANC30MI XX (17:53)
[2020-10-04] MEDS ORDERED: ALCOPAD25 TOP (17:53)
[2020-10-04] MEDS ORDERED: metFORMIN (GLUCOPHAGE) 500MG TAB PO ONE (17:55)
[2020-10-04 18:00] VITALS: BP 130/64
== END 2020-10-04 18:23 | disposition home or self-care (01) ==
LOC: M ED 11:07
DX: E11.9 Type 2 diabetes mellitus without complications (principal); J02.0 Streptococcal pharyngitis; N40.0 Benign prostatic hyperplasia without lower urinary tract symptoms; Z87.891 Personal history of nicotine dependence; Z83.3 Family history of diabetes mellitus; Z79.899 Other long term (current) drug therapy
CPT/HCPCS: 80048; 80076; 82803; 83036; 85025; 87880; 96361; 96374; 99285; U0003

== ENCOUNTER → 2020-10-23 | Outpatient (REF) | payer OTHER ==
[~2020-10-23] MED LIST changes: +ALCOPAD25 TOP; +AMOX500C PO; +BLOOKIT21 XX; +FINA5TAB2; +GLUC1TES2 XX; +LANC30MI XX; +METF-839 PO; +TAMS1CAP17
== END ==
LOC: M SFHCPLAZ 09:57
PROVIDERS: ATTEND Family Medicine
DX: R74.8 Abnormal levels of other serum enzymes (principal); D75.1 Secondary polycythemia; E11.9 Type 2 diabetes mellitus without complications

== ENCOUNTER → 2020-12-14 | Outpatient (REF) | payer MEDICARE ==
[2020-12-14 11:36] LABS: BASO % 0.9 % (0.0-1.0); EOS # 0.2 10^3/uL (0.0-0.5); EOS % 3.5 % (0.0-3.0); HEMATOCRIT 46.5 % (42.0-52.0); HEMOGLOBIN 15.4 g/dl (13.5-17.5); LYMPH # 1.4 10^3/uL (1.5-5.0); MEAN CORPUSCULAR HEMOGLOBIN 31.4 pg (27.0-33.0); MEAN CORPUSCULAR HGB CONC 33.1 g/dl (32.0-36.5); MEAN CORPUSCULAR VOLUME 94.7 fl (80.0-96.0); MONO # 0.4 10^3/uL (0.0-0.8); MONO % 9.8 % (2.0-8.0); NEUTROPHILS # 2.3 10^3/uL (1.5-8.5); NEUTROPHILS % 53.6 % (36.0-66.0); PLATELET COUNT, AUTOMATED 138 10^3/uL (150-450); RED BLOOD COUNT 4.91 10^6/uL (4.30-6.10); WHITE BLOOD COUNT 4.3 10^3/uL (4.0-10.0)
[2020-12-14 12:49] LABS: ALBUMIN 3.7 GM/DL (3.2-5.2); ALT/SGPT 38 U/L (12-78); BILIRUBIN,TOTAL 0.5 MG/DL (0.2-1.0); BLOOD UREA NITROGEN 15 MG/DL (7-18); CALCIUM LEVEL 8.9 MG/DL (8.8-10.2); CARBON DIOXIDE LEVEL 29 MEQ/L (21-32); CHLORIDE LEVEL 105 MEQ/L (98-107); CHOLESTEROL LEVEL 112 MG/DL (<200); CHOLESTEROL RISK RATIO 3.393 (<5); CREATININE FOR GFR 0.75 MG/DL (0.70-1.30); FERRITIN 538 NG/ML (26-388); GLOMERULAR FILTRATION RATE > 60.0 (>49); GLUCOSE, FASTING 106 MG/DL (70-100); HDL CHOLESTEROL 33 MG/DL (>40); IRON (FE) 99 UG/DL (65-175); LDL CHOLESTEROL 49 MG/DL (<100); LIPASE 451 U/L (73-393); NON-HDL-C 79 MG/DL; PERCENT SATURATION 29.6 % (19.7-50.0); POTASSIUM SERUM 4.6 MEQ/L (3.5-5.1); SODIUM LEVEL 140 MEQ/L (136-145); TOTAL IRON BINDING CAPACITY 335 UG/DL (250-450); TOTAL PROTEIN 6.8 GM/DL (6.4-8.2); TRIGLYCERIDES LEVEL 151 MG/DL (<150)
[2020-12-14 13:43] LABS: CREATININE, URINE 52.1 MG/DL; MALB URINE SIEMENS 12.9 MG/L; MAU/CREAT RATIO 24.7 MCG/MG (0.0-30.0)
[2020-12-14 21:32] LABS: HEMOGLOBIN A1c 6.4 %
[2020-12-17 18:09] LABS: CERULOPLASMIN 19.1 mg/dL (16.0-31.0)
== END ==
LOC: M SFHCPLAZ 08:50
PROVIDERS: ATTEND Family Medicine
DX: R74.8 Abnormal levels of other serum enzymes (principal); D75.1 Secondary polycythemia; E11.9 Type 2 diabetes mellitus without complications
CPT/HCPCS: 36415; 80053; 80061; 82043; 82390; 82728; 83036; 83519; 83550; 83690; 85025; G0463

== ENCOUNTER → 2021-01-08 | Outpatient (REF) | payer MEDICARE | LOC: M SFHCPLAZ 08:36 | PROVIDERS: ATTEND Family Medicine | DX: R79.89 Other specified abnormal findings of blood chemistry (principal); D69.6 Thrombocytopenia, unspecified ==

== ENCOUNTER → 2021-01-08 | Outpatient (CLI) | payer MEDICARE ==
[2021-01-08 10:21] LABS: BASO # 0.1 10^3/uL (0.0-0.2); BASO % 1.1 % (0.0-1.0); EOS # 0.1 10^3/uL (0.0-0.5); EOS % 2.1 % (0.0-3.0); HEMATOCRIT 47.4 % (42.0-52.0); HEMOGLOBIN 15.7 g/dl (13.5-17.5); LYMPH # 1.3 10^3/uL (1.5-5.0); LYMPH % 24.9 % (24.0-44.0); MEAN CORPUSCULAR HEMOGLOBIN 31.3 pg (27.0-33.0); MEAN CORPUSCULAR HGB CONC 33.1 g/dl (32.0-36.5); MEAN CORPUSCULAR VOLUME 94.4 fl (80.0-96.0); MONO # 0.5 10^3/uL (0.0-0.8); MONO % 10.1 % (2.0-8.0); NEUTROPHILS # 3.3 10^3/uL (1.5-8.5); NEUTROPHILS % 61.6 % (36.0-66.0); PLATELET COUNT, AUTOMATED 145 10^3/uL (150-450); RED BLOOD COUNT 5.02 10^6/uL (4.30-6.10); WHITE BLOOD COUNT 5.4 10^3/uL (4.0-10.0)
== END ==
LOC: M PLALAB 08:51
PROVIDERS: ATTEND Student in an Organized Health Care Education/Training Program
DX: R79.89 Other specified abnormal findings of blood chemistry (principal); D69.6 Thrombocytopenia, unspecified
CPT/HCPCS: 36415; 82728; 85025; G0463

== ENCOUNTER → 2021-02-08 | Outpatient (CLI) | payer MEDICARE ==
[2021-02-08 14:13] LABS: ALBUMIN 3.8 GM/DL (3.2-5.2); ALT/SGPT 44 U/L (12-78); BILIRUBIN,TOTAL 0.4 MG/DL (0.2-1.0); BLOOD UREA NITROGEN 18 MG/DL (7-18); CALCIUM LEVEL 9.2 MG/DL (8.8-10.2); CARBON DIOXIDE LEVEL 32 MEQ/L (21-32); CHLORIDE LEVEL 107 MEQ/L (98-107); CREATININE FOR GFR 0.85 MG/DL (0.70-1.30); GLOMERULAR FILTRATION RATE > 60.0 (>49); GLUCOSE, FASTING 128 MG/DL (70-100); IRON (FE) 123 UG/DL (65-175); PERCENT SATURATION 34.7 % (19.7-50.0); POTASSIUM SERUM 5.4 MEQ/L (3.5-5.1); PROSTATIC SPECIFIC AG MONITOR 1.69 NG/ML (< 4.00); SODIUM LEVEL 140 MEQ/L (136-145); TOTAL IRON BINDING CAPACITY 354 UG/DL (250-450)
[2021-02-08 14:18] LABS: CREATININE, URINE 99.7 MG/DL; MALB URINE SIEMENS 20.1 MG/L; MAU/CREAT RATIO 20.1 MCG/MG (0.0-30.0)
== END ==
LOC: M PLALAB 08:30
PROVIDERS: ATTEND Student in an Organized Health Care Education/Training Program
DX: R79.89 Other specified abnormal findings of blood chemistry (principal); E11.9 Type 2 diabetes mellitus without complications; R97.20 Elevated prostate specific antigen [PSA]

== ENCOUNTER → 2021-02-20 | Outpatient (CLI) | payer MEDICARE ==
[2021-02-20 18:33] LABS: ALBUMIN 3.9 GM/DL (3.2-5.2); ALT/SGPT 42 U/L (12-78); BILIRUBIN,TOTAL 0.5 MG/DL (0.2-1.0); BLOOD UREA NITROGEN 33 MG/DL (7-18); CALCIUM LEVEL 9.2 MG/DL (8.8-10.2); CARBON DIOXIDE LEVEL 29 MEQ/L (21-32); CHLORIDE LEVEL 107 MEQ/L (98-107); GLOMERULAR FILTRATION RATE > 60.0 (>49); GLUCOSE, FASTING 99 MG/DL (70-100); IRON (FE) 69 UG/DL (65-175); POTASSIUM SERUM 4.2 MEQ/L (3.5-5.1); SODIUM LEVEL 140 MEQ/L (136-145); TOTAL PROTEIN 7.1 GM/DL (6.4-8.2)
== END ==
LOC: M LAB 17:46
PROVIDERS: ATTEND Student in an Organized Health Care Education/Training Program
DX: R79.89 Other specified abnormal findings of blood chemistry (principal)

== ENCOUNTER → 2021-08-13 | Outpatient (CLI) | payer MEDICARE ==
[~2021-08-13] MED LIST changes: +B-12100010 PO; +CINN500C12 PO; +METF10004
[2021-08-13 13:30] LABS: HEMATOCRIT 48.6 % (42.0-52.0); HEMOGLOBIN 16.5 g/dl (13.5-17.5); MEAN CORPUSCULAR VOLUME 94.2 fl (80.0-96.0); PLATELET COUNT, AUTOMATED 141 10^3/uL (150-450); RED BLOOD COUNT 5.16 10^6/uL (4.30-6.10); WHITE BLOOD COUNT 6.4 10^3/uL (4.0-10.0)
[2021-08-13 13:55] LABS: ALBUMIN 3.8 GM/DL (3.2-5.2); ALT/SGPT 42 U/L (12-78); BILIRUBIN,TOTAL 0.7 MG/DL (0.2-1.0); BLOOD UREA NITROGEN 11 MG/DL (7-18); CALCIUM LEVEL 9.3 MG/DL (8.8-10.2); CARBON DIOXIDE LEVEL 31 MEQ/L (21-32); CHLORIDE LEVEL 106 MEQ/L (98-107); CREATININE FOR GFR 0.84 MG/DL (0.70-1.30); GLOMERULAR FILTRATION RATE > 60.0 (>49); GLUCOSE, FASTING 91 MG/DL (70-100); POTASSIUM SERUM 5.3 MEQ/L (3.5-5.1); SODIUM LEVEL 139 MEQ/L (136-145); TOTAL PROTEIN 6.9 GM/DL (6.4-8.2)
== END ==
LOC: M PLAIMG 10:16
PROVIDERS: ATTEND Urology
DX: N40.0 Benign prostatic hyperplasia without lower urinary tract symptoms (principal)

== ENCOUNTER → 2021-08-21 | Outpatient (CLI) | payer MEDICARE | LOC: M LABSMTC 09:55 | PROVIDERS: ATTEND Anesthesiology | DX: Z01.818 Encounter for other preprocedural examination (principal); Z11.52 Encounter for screening for COVID-19 ==

== ENCOUNTER 2021-08-26 07:36 | Day surgery (SDC) | payer MEDICARE ==
[2021-08-26] VITALS (7 sets, daily range): BP systolic 105–144; BP diastolic 63–91
[~2021-08-26] VITALS: Ht 172.7 cm; Wt 77.9 kg
[~2021-08-26 07:36] MED LIST changes: +CIPROFLOXACIN 400 MG in IV 1 EA IV ONE; +LR 1,000 ML IV ONE
[2021-08-26] MEDS ORDERED: propofoL 200 MG/20 ML VIAL As Ordered ONE (11:05)
[2021-08-26] MEDS ORDERED: ONDANSETRON 4MG/2ML VIAL As Ordered ONE (11:05)
[2021-08-26] MEDS ORDERED: ePHEDrine SULFATE 25 MG/5 ML(5MG/ML) SYRINGE As Ordered ONE (11:05)
[2021-08-26] MEDS ORDERED: fentaNYL 100 MCG/2 ML INJECTION As Ordered ONE ×2 (11:05→11:18)
[2021-08-26] MEDS ORDERED: ROCURONIUM BROMIDE 50 MG/5 ML VIAL As Ordered ONE (11:05)
[2021-08-26] MEDS ORDERED: MIDAZOLAM INJ 2MG/2ML VIAL (J2250 PER 1MG) As Ordered ONE (11:05)
[2021-08-26] MEDS ORDERED: dexameTHASONE 4 MG/ML 1ML VIAL (J1100 PER 1MG) As Ordered ONE (11:05)
[2021-08-26] MEDS ORDERED: LIDOCAINE 2% 100MG/5ML SDV (FOR ANES.) As Ordered ONE (11:05)
[2021-08-26] MEDS ORDERED: ACETAMINOPHEN 1000MG 100ML IV BTL (OFIRMEV) (J0131 PER 10MG) As Ordered ONE (11:06)
[2021-08-26] MEDS ORDERED: SUGAMMADEX SODIUM 500 MG/5 ML VIAL (BRIDION) As Ordered ONE (11:19)
[2021-08-26] MEDS ORDERED: ESMOLOL INJ 100MG/10ML VIAL As Ordered ONE (11:27)
[2021-08-26] MEDS ORDERED: ONDANSETRON 4MG/2ML VIAL IV PRN (12:40)
[2021-08-26] MEDS ORDERED: LR 1,000 ML IV SCH (12:40)
[2021-08-26] MEDS ORDERED: fentaNYL 100 MCG/2 ML INJECTION IV PRN (12:40)
[2021-08-26] MEDS ORDERED: BELLADONNA 16.2mg/OPIUM 60mg 1 EA SUPP PR PRN (12:50)
[2021-08-26] MEDS ORDERED: ACETAMINOPHEN TAB 650MG DOSE (2X325MG) PO PRN (12:55)
[2021-08-26] MEDS ORDERED: TAMSULOSIN 0.4 MG CAP PO SCH (21:00)
[2021-08-27 03:00] VITALS: BP 125/66
[2021-08-27 07:00] VITALS: BP 135/72
[2021-08-27] MEDS ORDERED: metFORMIN (GLUCOPHAGE) 1000 MG TABLET PO SCH (08:00)
[2021-08-27] MEDS ORDERED: FINASTERIDE 5 MG TAB PO SCH (09:00)
[2021-08-27 10:00] VITALS: BP 128/74
== END 2021-08-27 12:53 | disposition home or self-care (01) ==
LOC: M SDC 07:36 → M MSPAV 14:13 → M SDC 08-27 12:53
PROVIDERS: ATTEND Urology
DX: N40.0 Benign prostatic hyperplasia without lower urinary tract symptoms (principal); N99.89 Other postprocedural complications and disorders of genitourinary system; R33.9 Retention of urine, unspecified; E11.9 Type 2 diabetes mellitus without complications; Z90.49 Acquired absence of other specified parts of digestive tract; Z79.899 Other long term (current) drug therapy; Z79.84 Long term (current) use of oral hypoglycemic drugs
CPT/HCPCS: 51702; 52601; 81001; 87086; 99284; J0131; J0744; J1100; J2250; J2405; J3010

== ENCOUNTER 2021-08-27 19:39 | Emergency (ER) | payer MEDICARE ==
[~2021-08-27] VITALS: Ht 172.7 cm; Wt 78.9 kg
[~2021-08-27 19:39] MED LIST changes: -CIPROFLOXACIN 400 MG in IV 1 EA IV ONE; -LR 1,000 ML IV ONE
[2021-08-27 22:59] VITALS: BP 143/71
== END 2021-08-27 23:04 | disposition home or self-care (01) ==
LOC: M ED 19:39
DX: N99.89 Other postprocedural complications and disorders of genitourinary system (principal); R33.9 Retention of urine, unspecified; E11.9 Type 2 diabetes mellitus without complications; N40.0 Benign prostatic hyperplasia without lower urinary tract symptoms; Z90.49 Acquired absence of other specified parts of digestive tract; Z79.899 Other long term (current) drug therapy; Z79.84 Long term (current) use of oral hypoglycemic drugs

== ENCOUNTER → 2022-04-22 | Outpatient (CLI) | payer MEDICARE ==
[2022-04-22 12:30] LABS: ALBUMIN 4.1 GM/DL (3.2-5.2); BILIRUBIN,DIRECT 0.2 MG/DL (0.0-0.2); BILIRUBIN,TOTAL 0.7 MG/DL (0.2-1.0); CHOLESTEROL RISK RATIO 2.647 (<5); TOTAL PROTEIN 7.5 GM/DL (6.4-8.2)
[2022-04-22 12:37] LABS: MALB URINE SIEMENS 48.7 MG/L
[2022-04-22 13:18] LABS: HEMOGLOBIN A1c 6.7 %
== END ==
LOC: M PLALAB 08:18
PROVIDERS: ATTEND Student in an Organized Health Care Education/Training Program
DX: K74.00 Hepatic fibrosis, unspecified (principal); E11.9 Type 2 diabetes mellitus without complications

== ENCOUNTER → 2023-02-16 | Outpatient (CLI) | payer MEDICARE ==
[2023-02-16 17:23] LABS: HEMATOCRIT 46.4 % (42.0-52.0); HEMOGLOBIN 15.6 g/dl (13.5-17.5); MEAN CORPUSCULAR HGB CONC 33.6 g/dl (32.0-36.5); MEAN CORPUSCULAR VOLUME 95.3 fl (80.0-96.0); PLATELET COUNT, AUTOMATED 150 10^3/uL (150-450); RED BLOOD COUNT 4.87 10^6/uL (4.30-6.10); WHITE BLOOD COUNT 6.9 10^3/uL (4.0-10.0)
[2023-02-16 17:34] LABS: INR 1.07; PROTHROMBIN TIME 13.6 SECONDS (12.5-14.5)
[2023-02-16 17:43] LABS: CREATININE, URINE 220.9 MG/DL
[2023-02-16 17:52] LABS: ALBUMIN 4.1 G/DL (3.2-5.2); ALKALINE PHOSPHATASE 80 U/L (46-116); ALT/SGPT 56 U/L (7.0-40); AST/SGOT 23 U/L (<34); BILIRUBIN,TOTAL 0.7 MG/DL (0.3-1.2); BLOOD UREA NITROGEN 19 MG/DL (9-23); CARBON DIOXIDE LEVEL 29 MMOL/L (20-31); CHLORIDE LEVEL 106 MMOL/L (98-107); CHOLESTEROL LEVEL 70 MG/DL (<200); CHOLESTEROL RISK RATIO 3.01 (<5); CREATININE FOR GFR 0.89 MG/DL (0.70-1.30); GLOMERULAR FILTRATION RATE > 60.0 (>49); GLUCOSE, FASTING 122 MG/DL (74-106); HDL CHOLESTEROL 23.2 MG/DL (>40); LDL CHOLESTEROL 3.2 MG/DL (<100); NON-HDL-C 46.8 MG/DL; POTASSIUM SERUM 4.4 MMOL/L (3.5-5.1); SODIUM LEVEL 142 MMOL/L (136-145); TOTAL PROTEIN 7.1 G/DL (5.7-8.2); TRIGLYCERIDES LEVEL 218 MG/DL (<150)
== END ==
LOC: M PLALAB 14:59
PROVIDERS: ATTEND Student in an Organized Health Care Education/Training Program
DX: K74.00 Hepatic fibrosis, unspecified (principal); E11.9 Type 2 diabetes mellitus without complications; Z12.11 Encounter for screening for malignant neoplasm of colon

== ENCOUNTER → 2023-05-21 | Outpatient (CLI) | payer MEDICARE ==
[2023-05-21 15:58] LABS: HEMOGLOBIN A1c 6.6 % (4.0-6.0)
== END ==
LOC: M PLALAB 14:17
PROVIDERS: ATTEND Student in an Organized Health Care Education/Training Program
DX: E11.9 Type 2 diabetes mellitus without complications (principal)

== ENCOUNTER → 2023-09-01 | Outpatient (CLI) | payer MEDICARE ==
[2023-09-01 15:58] LABS: HEMOGLOBIN A1c 7.1 % (4.0-6.0)
== END ==
LOC: M PLALAB 13:40
PROVIDERS: ATTEND Student in an Organized Health Care Education/Training Program
DX: E11.9 Type 2 diabetes mellitus without complications (principal)

== ENCOUNTER → 2025-03-14 | Outpatient (CLI) | payer MEDICARE ==
[2025-03-14 14:17] LABS: BASO # 0.1 10^3/uL (0.0-0.2); BASO % 1.2 % (0.0-1.0); EOS # 0.3 10^3/uL (0.0-0.5); EOS % 5.2 % (0.0-3.0); LYMPH # 1.8 10^3/uL (1.5-5.0); LYMPH % 33.8 % (24.0-44.0); MONO # 0.5 10^3/uL (0.0-0.8); MONO % 9.3 % (2.0-8.0); NEUTROPHILS # 2.6 10^3/uL (1.5-8.5); NEUTROPHILS % 50.1 % (36.0-66.0); PLATELET COUNT, AUTOMATED 127 10^3/uL (150-450)
[2025-03-14 14:34] LABS: ESTIMATED AVERAGE GLUCOSE 160.0 MG/DL (60-110)
[2025-03-14 14:49] LABS: ALT/SGPT 45 U/L (7.0-40); AST/SGOT 23 U/L (<34); CALCIUM LEVEL 9.2 MG/DL (8.3-10.6); CARBON DIOXIDE LEVEL 30 MMOL/L (20-31); CHLORIDE LEVEL 104 MMOL/L (98-107); CHOLESTEROL LEVEL 133 MG/DL (<200); CHOLESTEROL RISK RATIO 4.22 (<5); CREATININE FOR GFR 0.91 MG/DL (0.70-1.30); GLOMERULAR FILTRATION RATE > 90.0 (>49); LDL CHOLESTEROL 56.9 MG/DL (<100); NON-HDL-C 101.5 MG/DL; POTASSIUM SERUM 5.0 MMOL/L (3.5-5.1); SODIUM LEVEL 142 MMOL/L (136-145); TRIGLYCERIDES LEVEL 223 MG/DL (<150)
[2025-03-14 14:50] LABS: CREATININE, URINE 68.1 MG/DL
[2025-03-14 14:51] LABS: MALB URINE SIEMENS 37.0 MG/L; MAU/CREAT RATIO 54.3 MCG/MG (0.0-30.0)
[2025-03-14 14:52] LABS: TOTAL 25(OH) VITAMIN D 53.3 NG/ML (20.0-100.0)
[2025-03-14 14:53] LABS: VITAMIN B12 LEVEL 412 PG/ML (211-911)
== END ==
LOC: M PLALAB 09:23
PROVIDERS: ATTEND Family Medicine
DX: Z00.00 Encounter for general adult medical examination without abnormal findings (principal); E11.9 Type 2 diabetes mellitus without complications; Z79.899 Other long term (current) drug therapy